=== PATIENT | female | born 2005 | race Caucasian/White ===

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

== ENCOUNTER 2025-01-23 15:17 | Outpatient (AMB) | payer OTHER, SELFPAY ==
[2025-01-23 15:20] VITALS: BP 138/77; PULSE 125; TEMP 36.3; O2SAT 100; BMI 22.9
--- NOTE | 2025-01-23 15:20 | MHC.PC.OV ---
Vital Signs 01/23/25 15:20 01/23/25 17:13 Height 5 ft 8.11 in Weight 151 lb 2 oz BMI 22.9 BP 138/77 Blood Pressure Location Lt brachial Position Sitting Pulse 125 H 97 Pulse Source Pulse Oximeter Monitor Temp 97.3 F Temp Source Temporal Artery Scan Pulse Oximetry (%) 100 Oxygen Delivery Method Room Air Intake Visit Reasons: New Patient Intake Note: Has been getting intermittent dizziness, lightheaded and has shaking episodes. Saw ENT Sunday is being referred to Neurology. Hx social anxiety, selective mutism, anxiety. Accompanied by: Parent Allergies No Known Allergies Allergy (Verified 01/23/25 15:49) Medication List - Last Reconciled 01/23/25 by Muriel Alan PA-C No Known Home Meds Tobacco use date assessed: 01/23/25 Dental Screening Dental Screen Date: 01/23/25 Did you have a dental visit in the last 12 months?: Yes Was dental information given to patient?: Patient has dentist HPI New Patient HPI Details The patient is a 19-year-old female presenting to [facility] care. The patient has a history of social anxiety disorder and selective mutism, which contribute to her elevated heart rate during stressful situations, such as meeting new people. She experiences dizziness, lightheadedness, and shaking episodes, which have prompted previous evaluations including blood sugar and urine tests, as well as blood work for anemia. Recent lab results indicated dehydration, despite the patient primarily consuming water and avoiding sugary drinks. A previous examination revealed fluid in her ears, and blood work showed low carbon dioxide levels. The patient has no significant family history of thyroid disease, and her thyroid examination was normal. Social history - Family status: Lives with family, supportive environment noted during visit - Nutritional intake: Primarily drinks water, avoids sugary drinks and soda [facility] Medical History (Updated 01/23/25 @ 17:16 by Muriel Alan PA-C) Preventative health care Selective mutism Dizziness Social anxiety disorder Family History Mother HTN (hypertension) Hypercholesteremia Father Stroke Hypercholesteremia Social History Housing: House Patient Tobacco Use Status: Never used Tobacco service: No Current occupational status: employed Cognitive needs: No Hearing needs: No Vision needs: No Questionnaire PHQ-9 Over the last 2 weeks, how often have you been bothered by any of the following problems? 1. Little interest or pleasure in doing things: not at all 2. Feeling down, depressed, or hopeless: not at all 3. Trouble falling or staying asleep, or sleeping too much: several days 4. Feeling tired or having little energy: several days 5. Poor appetite or overeating: several days 6. Feeling bad about yourself - or that you are a failure or have let yourself or your family down: not at all 7. Trouble concentrating on things, such as reading the newspaper or watching television: several days 8. Moving or speaking so slowly that other people could have noticed. Or the opposite - being so fidgety or restless that you have been moving around a lot more than usual: not at all 9. Thoughts that you would be better off or of hurting yourself in some way: not at all Total score: 4 Depression Screening Interpretation: Positive Depression Screening Follow-up: Existing condition and Declines treatment (Mother at bedside agrees with plan ) Depression Screening Done: Yes 47789 - PHQ-9 Billing: Yes Source: Developed by Drs. Juvenal Alarcon, Maritza Grimaldo, José Miguel Altman and colleagues, with an educational viktor from [employer]. Thrive Questionnaire Date Thrive assessed: 01/23/25 I am a: Patient What is your living situation today?: I have a steady place to live Within the past 12 months, did you worry whether your food would run out before you got money to buy more?: Never true Do you have trouble paying for medicines?: No Do you have trouble getting transportation to medical appointments?: No Do you have trouble paying your heating and electricity bill?: No Do you have trouble taking care of your child, family member or friend?: No Do you have trouble with day-to-day activities such as bathing, preparing meals, shopping, managing finances, etc.?: No Are you currently unemployed and looking for a job?: No Are you interested in more education?: No Please select the resources that you would like help with: None THRIVE Score: 0 AUDIT C Alcohol Use Questionnaire (AUDIT-C) 1. How often do you have a drink containing alcohol?: Never Total Score: 0 Score Reviewed/Action Taken: Yes ROBERTO-7 AMB Questionnaire ROBERTO-7 Feeling nervous, anxious, or on edge: 1 = Several days Not being able to stop or control worryin = Not at all Worrying too much about different things: 0 = Not at all Trouble relaxin = Not at all Being so restless that it is hard to sit still: 0 = Not at all Becoming easily annoyed or irritable: 1 = Several days Feeling afraid as if something awful might happen: 0 = Not at all Total ROBERTO-7 score (0-4 normal; 5-9 mild; 10-14 moderate; 15-21 severe): 2 Source: Developed by Drs. Juvenal Alarcon, Maritza Grimaldo, José Miguel Altman and colleagues, with an educational viktor from [employer]. ROBERTO-7 Assessment Billing ROBERTO-7 Assessment Tool: ROBERTO-7 Assessment 47230 Review of Systems Const Details: - Cardiovascular: Reports palpitations during stressful situations. Denies chest pain or syncope. - Neurological: Reports dizziness, lightheadedness, and shaking episodes. Denies headaches or seizures. - Respiratory: Denies dyspnea, cough, or wheezing. - Gastrointestinal: Denies abdominal pain, nausea, or vomiting. All systems reviewed & are unremarkable except as noted in HPI and below Physical exam (Primary Care) Vital Signs: Last Vital Signs Temp 97.3 F 01/23/25 15:20 Pulse 125 H 01/23/25 15:20 BP 138/77 01/23/25 15:20 Pulse Ox 100 01/23/25 15:20 Oxygen Delivery Method Room Air 01/23/25 15:20 Care Plan Goal for BP management: <140/90 at Goal BMI result Body Mass Index 22.9 Normal BMI Tobacco/Smoking Status: Tobacco use Status Tobacco use date assessed 01/23/25 01/23/25 15:21 Patient Tobacco Use Status Never used Tobacco 01/23/25 15:21 PHQ-9: PHQ-9 Score PHQ-9: Total score 4 01/23/25 16:01 Depression Screening Interpretation: Positive Depression Screening Follow-up: Existing condition and Declines treatment (Mother at bedside agrees with plan ) Thrive Assessment: Date of Thrive Assessment Date Thrive assessed 01/23/25 01/23/25 15:21 Const Other: Appearance: Alert. Oriented X3. No acute distress. Head: Normal external exam. Normocephalic. Atraumatic. Eyes: Pupils are equal, round, and reactive to light. Extraocular movements intact. Conjunctiva and sclera normal. Eyelids normal. Ears: Fluid noted in ears. Throat: Pharynx normal. Uvula midline. Moist mucous membranes. Neck: Normal inspection. Neck supple. Full range of motion. No adenopathy. Thyroid Normal. No meningeal signs. No neck mass noted. Cardiovascular: Heart rate elevated at 125 bpm. Normal heart rhythm. Heart sound normal. No murmurs noted. Pulses normal throughout. Respiratory: No respiratory distress. Painless inspiration. Breath sounds normal. No wheezes/rales/rhonchi noted. Chest nontender. No accessory muscle usage noted or decreased air movement noted. Abdomen: Soft and nontender. Bowel sounds normal in all 4 quadrants. No distention noted. No organomegaly noted. No visible injury noted. Back: No costovertebral angle tenderness. Full range of motion noted. Skin: Skin warm and dry. Normal skin color. Normal skin turgor. No rashes/lesions/lacerations noted. Extremities: No lower extremity edema. Extremities exhibit normal range of motion. Extremities nontender. Neuro: Oriented X 3. No motor deficit. No sensory deficit. Reflexes normal. Episodes of dizziness, lightheadedness, and shaking noted. Office Procedures Flu Questionnaire Does the patient have a severe egg allergy?: No Does the patient have severe life threatening allergies?: No Does the patient have a fever or illness today?: No Has the patient ever had Guillain-Hudson Syndrome?: No Has the patient ever had any past reaction to a flu shot?: No Immunizations Fluarix [id number] (PF) 45 mcg (15 mcg x 3)/0.5 mL IM syringe Performing Provider: Muriel Alan PA-C [facility] Documented (not given) by: Halle Heredia CMA on 01/23/25 15:30 Reason Not Given: Received Previously Results Reviewed Results Reviewed: - Labs: Blood sugar normal, urine showed dehydration, low carbon dioxide levels noted Coding Level of Care Code New Pt Level 4 (66421) Complex EM visit Add On G2211 Diagnoses Social anxiety disorder F40.10 Dizziness R42 Selective mutism F94.0 Preventative health care Z00.00 Additional Codes ROBERTO-7 Assessment Billing - ROBERTO-7 Assessment Tool: ROBERTO-7 Assessment 68792 ([id number]) PHQ-9 - 72621 - PHQ-9 Billing: Yes ([id number]) Time Spent (min) 60 Assessment & Plan Assessment & Plan (1) Social anxiety disorder: Code(s): F40.10 - Social phobia, unspecified Category: Medical Plan: The patient will be referred to a therapist or psychiatrist to address social anxiety disorder, with the option of phone consultations to accommodate comfort levels. Medication such as Ativan may be considered for acute anxiety episodes if the patient is open to it. (2) Dizziness: Code(s): R42 - Dizziness and giddiness Category: Medical Plan: A neurology referral for an EEG is recommended to rule out seizures as a cause of dizziness and lightheadedness. Additional blood work including magnesium, vitamin B12, folate, and thyroid function tests will be conducted to identify any underlying deficiencies or imbalances. (3) Selective mutism: Code(s): F94.0 - Selective mutism Category: Medical Plan: Condition is chronic and stable will continue to monitor. (4) Preventative health care: Code(s): Z00.00 - Encounter for general adult medical examination without abnormal findings Category: Medical Plan: The patient is advised to undergo routine blood work, including inflammatory markers, hemoglobin A1c, and cholesterol, to establish a baseline and monitor for any abnormalities. A follow-up appointment is scheduled in two to three months to review neurology findings and reassess the patient's condition. Plan Plan Patient was informed and verbally consented to the use of an ambient scribe for clinic note documentation during this visit. 1. Social Anxiety Disorder The patient will be referred to a therapist or psychiatrist to address social anxiety disorder, with the option of phone consultations to accommodate comfort levels. Medication such as Ativan may be considered for acute anxiety episodes if the patient is open to it. 2. Dizziness And Lightheadedness A neurology referral for an EEG is recommended to rule out seizures as a cause of dizziness and lightheadedness. Additional blood work including magnesium, vitamin B12, folate, and thyroid function tests will be conducted to identify any underlying deficiencies or imbalances. 3. Preventative Care The patient is advised to undergo routine blood work, including inflammatory markers, hemoglobin A1c, and cholesterol, to establish a baseline and monitor for any abnormalities. A follow-up appointment is scheduled in two to three months to review neurology findings and reassess the patient's condition. During the visit, I discussed the importance of addressing social anxiety disorder with a therapist or psychiatrist, emphasizing the availability of phone consultations to ease the process. We considered the use of Ativan for acute anxiety episodes, should the patient choose to pursue medication. I recommended a neurology referral for an EEG to investigate the cause of dizziness and lightheadedness, and we planned additional blood work to check for deficiencies. A follow-up in two to three months was scheduled to review findings and adjust the care plan as needed. Orders: Orders Magnesium Today Z00.00 - Encounter for general adult medical examination without abnormal findings UA CC w/rflx Micro + Cult Today Z00.00 - Encounter for general adult medical examination without abnormal findings DHEA Sulfate Today Z00.00 - Encounter for general adult medical examination without abnormal findings Testosterone, Free/Total Today Z00.00 - Encounter for general adult medical examination without abnormal findings Progesterone Today Z00.00 - Encounter for general adult medical examination without abnormal findings Lutenizing Hormone Today Z00.00 - Encounter for general adult medical examination without abnormal findings Influenza [id number] Immunization Today Z23 - Encounter for immunization C Reactive Protein Today Z00.00 - Encounter for general adult medical examination without abnormal findings Erythrocyte Sedimentation Rate Today Z00.00 - Encounter for general adult medical examination without abnormal findings Lipid Panel Today Z00.00 - Encounter for general adult medical examination without abnormal findings Hemoglobin A1c Today Z00.00 - Encounter for general adult medical examination without abnormal findings TSH reflex Free T4 Today Z00.00 - Encounter for general adult medical examination without abnormal findings Vitamin B12 and Folate Today Z00.00 - Encounter for general adult medical examination without abnormal findings Vitamin D 25-OH Total Today Z00.00 - Encounter for general adult medical examination without abnormal findings Dihydrotestosterone Today Z00.00 - Encounter for general adult medical examination without abnormal findings Prolactin Today Z00.00 - Encounter for general adult medical examination without abnormal findings Patient Instructions: - Schedule an appointment with a therapist or psychiatrist for social anxiety disorder. - Consider medication for anxiety episodes if needed. - Complete the recommended blood work, including tests for magnesium, vitamin B12, folate, and thyroid function. - Follow up with neurology for an EEG to assess dizziness and lightheadedness. - Return for a follow-up appointment in two to three months to review test results and adjust the care plan.
--- OUTSIDE RECORDS SUMMARY | 2025-01-23 16:50 | XMS_ITS | Patient Health Record ---
Author Organization [facility] Address [address] [facility] [address] Care Team Providers Care Teacher Of The Visually Impaired Name Role Phone Tameka Kaplan MD Primary Care Provider Nirmal Ignacio Unavailable [phone] Reason For Referral No Information Medications Medication SIG (Take, Route, Frequency, Duration) Notes Start Date End Date Status Ivgbcxte-Trvpwealh-ZG 3.5-53818-9 3-4 DROPS IN AFFECTED EAR 4 TIMES A DAY FOR 7 DAYS Otic; Duration: 7 Not-Takin g Social History Tobacco Use: Social History Observation Description Date Details (start date - stop date) Never Smoker NA - NA Tobacco Use/Smoking Question Answer Notes Are you a: nonsmoker Additional Findings: Tobacco Non-User Current no n-smoker Alcohol Screen Question Answer Notes Did you have a drink containing alcohol in the p ast year? No Points 0 Interpretation Negative Tobacco use other than smoking: Question Answer Notes Are you an other tobacco user? No Problems Problem Type SNOMED Code ICD Code Onset Dates Problem Status W/U Status Risk Notes Problem Tibialis tendinitis (25897000) Posterior tibial tendinitis, right leg (M76.821) Active confirmed Problem Tibialis tendinitis (56411612) Posterior tibial tendinitis, left leg (M76.822) Active confirmed Plan Of Treatment No Information Insurance Providers Payer Name Payer Address Payer Phone Subscriber Number Group Number Insured Name Patient Relationship to Insured Coverage Start Date Coverage End Date [facility] [address] [place] [address] [id number] Valeriy Dean Child - Insured has Financial Responsibility Medical (General) History Medical History History ICD Code Anxiety disorder Surgical History Surgery Date(Month/Year) tubes 2006, 2009 tube removal 2011
--- OUTSIDE RECORDS SUMMARY | 2025-01-23 16:50 | XMS_ITS | Clinical Summary ---
Author Organization [facility] Address [address] [place] [address] Phone Care Team Providers Care Marketing Services Coordinator Name Role Phone Halle Goff MD Primary Care Provider [phone] Allergies Active Allergy Reactions Criticality Noted Date Comments Environmental Medications Cetirizine HCl (ZYRTEC ALLERGY PO) Take by mouth. Active fluticasone 50 MCG/ACT nasal sprayIndications :Vertigo 12/19/2024 Active Active Problems Problem Noted Date Diagnosed [...] EDT): anxiety so so working w/ the [facility] [facility] Adjustment counselor, attendance counselor as pt transitioned from [facility] during the pandemic Assessment & Plan [...] EST): Ashwini started school in person at [employer] after being at [employer] in the past few years Was [...] was in therapy with jeffrey in the [place] office and recently with Claribel Also had a consult with [facility] yesterday. 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 Occasionally struggles with her brother - mom worries about this. Not interested in therapy at this time Assessment & Plan (08/05/2018 2:49 PM EDT): In therapy with Claribel. Doing okay in therapy. No acute concerns today. Assessment & Plan (07/30/2017 3:39 PM EDT): Consider therapy. Resolved Problems Problem Noted Date Diagnosed Date Resolved Date Tibialis tendinitis 12/22/2024 12/23/19 25 Posterior tibial tendinitis, right leg 12/22/2024 12/22/2024 Dizziness 12/05/2021 12/11/2022 Overview (12/05/2021): Pt seen [...] 2 pills last night. 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 Stressed import of taking med regularly. Assessment & Plan (06/23/2020 4:10 PM EDT): Doing well on the OCP with improvement of cramps. Assessment & Plan (03/19/2020 6:06 PM EST): Ordered OCP to start as discussed a month ago Sahwini never did start Fluoxetine. to follow up [...] for awhile and is having no SE. Encounters Date Type Department Care Team Description 12/22/2024 4:00 PM EDT Office Visit [facility] - [address] [address] Halle Goff MD Vertigo (Primary Dx); Dizziness from Last 3 Months Immunizations Immunization Administration Dates Next Due DTaP [...] Father Valeriy Roman Dental caries Father Valeriy [place] SAILAJA disease Father Valeriy [place] Hyperlipidemia Father Valeriy [place] Hypertension Father Valeriy [place] Stroke Father Valeriy [place] Arthritis Maternal Grandfather Dental caries Maternal Grandfather Diabetes Maternal Grandfather Hyperlipidemia Maternal Grandfather Hypertension Maternal Grandfather Dental caries Mother Monimaryellen [place] SAILAJA disease Mother Monimaryellen [place] Hypertension Mother Moni [place] Obesity Mother Moni [place] Aneurysm Paternal Grandfather Cancer Paternal Grandfather Cancer (Childhood Onset) Paternal Grandfather Dental caries Paternal Grandfather Emphysema Paternal Grandfather Heart disease (Premature) Paternal Grandfather Kidney disease Paternal Grandfather Prostate cancer Paternal Grandfather Hyperlipidemia Paternal Grandmother Relation Name Status Comments Brother David Roman Alive Brother: Alive and well Father Valeriy Roman Alive COPD Maternal Grandfather Mother Moni Kingevsuni Alive Mother: Alive and well Other Family history of Coronary artery disease, No family history of *CVA/Stroke, Family history of *Heart Disease, Family history of *Dental caries, Family history of Eczema, Family history of Hyperlipidemia, No family history of *Sudden /AL under 55, No family history of *Thrombophilia [...] Sign Reading Time Taken Comments Blood Pressure 120/70 12/22/2024 4:03 PM EDT man ual Pulse 98 12/22/2024 4:03 PM EDT Temperature 36.4 C (97.5 F) 12/22/2024 3:53 PM EDT Respiratory Rate - - Oxygen Saturation 100% 01/07/2024 8:51 AM EDT Inhaled Oxygen Concentration - - Weight 64.2 kg (141 lb 8 oz) 12/22/2024 3:53 PM EDT Height 170.2 cm (5' 7 ) 09/03/2024 10:06 AM EDT Body Mass Index 22.16 09/03/2024 10:06 AM EDT Plan of Treatment Health Maintenance Due Date Last Done Comments Influenza Vaccines (#1) 2024 02/13/20, 04/15/2018, 12/28/2006, Additional history exists COVID-19 Vaccine (3 - 2024-2 6 season) 2024 09/23/2020, 09/02/2020 DTaP,Tdap,and Td [...] Additional history exists Procedures * Due to [facility] law, this organization might not be sharing sensitive test results. Procedure Name Priority Date/Time Associated Diagnosis Comments POCT URINALYSIS DIPSTICK Routine 12/22/2024 4:14 PM EDT Dizziness CHLAMYDIA AND GONORRHEA, AMPLIFIED Routine 09/03/2024 10:36 AM EDT Special screening examination for chlamydial disease from Last 3 Months or Most Recently Relevant to Health Maintenance Results * Due to [facility] law, this organization might not be sharing sensitive test results. * (ABNORMAL) POCT Urinalysis Dipstick (12/22/2024 4:14 PM EDT) Pathologist [facility] Leukocytes, U[facility] Nitrite, Urine [facility] Urobilinogen, Urine 0.2 0.1 - 1 mg/dL [facility] Protein, Urine +-(A) Negative [facility] Comment:15 mg/dL pH, Urine 5.5 4.6 - 10 [facility] BLOOD neg Negative n [facility] Specific [place], Urine 1.030 1.0003 - 1.03 [facility] Ketones, Urine +-(A) Negative [facility] DENISE Comment:5 mg/dL Bilirubin, Urine, POC neg Negative n [facility] Glucose neg Negative [facility] Urine 12/22/2024 4:14 PM EDT 12/22/2024 4:14 PM EDT Narrative [facility] - 12/22/2024 4:14 PM EDT [id number] ([id number]), [place] office Early Childhood Associate Teacher: 01 Testing Performed at us Halle Goff MD POINT OF CARE TEST ORDERABLES Final Result [facility] [address] [place] [address] * Chlamydia and Gonorrhoea, Amplified (09/03/2024 10:36 AM EDT) C trach CAORL ANN Negative Negative [facility] N gonorrhoeae CAROL ANN Negative Negative [facility] Urine (Urine) 09/03/2024 10: 36 AM EDT 09/03/2024 Comment:URINE Narrative [facility] - 09/04/2024 4:05 PM EDT Performed at: 01 - [facility] [address], [address], [place], [place] [id number] Director Market Research: Jabari Nino MD, Phone: [phone] us Tammy Gonzalez NP LAB MICROBIOLOGY - GENERAL NATASHA SPANGLER Final Result Performing Organization Address City/[facility]/ZIP Co de Phone Number [facility] [address] [place] [address] from Last 3 Months or Most Recently Relevant to Health Maintenance Insurance [facility] COMM[facility]CIAL [facility] [employer]CIAL Care Teams Marketing Services Coordinator Relationship Specialty Start Date End Date Halle Goff MD [address] [place] [id number] PCP - General Pediatrics 09/26/22
--- OUTSIDE RECORDS SUMMARY | 2025-01-23 16:50 | XMS_ITS | Encounter Summary ---
Author Organization [facility] Address [address] [place] [address] Phone Care Team Providers Care Camera Mechanic Name Role Phone Halle Goff MD Primary Care Provider [phone] Encounter Details Date Type Department Care Team (Late st Contact Info) Description 02/14/2011 Documentation [facility] Family Medicine [address] [place] [address] Family Medicine, Physician [address] [place] [address] Social History Tobacco Use Types Packs/Day Years [...] on filedocumented in this encounter Care Teams Camera Mechanic Relationship Specialty Start Date End Date Halle Goff MD [address] [place] [id number] PCP - General Pediatrics 09/26/22 documented as of this encounter
--- OUTSIDE RECORDS SUMMARY | 2025-01-23 16:50 | XMS_ITS | Encounter Summary ---
Author Organization [facility] Address [address] [place] [address] Phone Care Team Providers Care Bakery Worker Name Role Phone Halle Goff MD Primary Care Provider [phone] Encounter Details Date Type Department Care Team (Late st Contact Info) Description 01/18/2011 Documentation [facility] Family Medicine [address] [place] [address] Family Medicine, Physician [address] [place] [address] Social History Tobacco Use Types Packs/Day Years [...] on filedocumented in this encounter Care Teams Bakery Worker Relationship Specialty Start Date End Date Halle Goff MD [address] [place] [address] PCP - General Pediatrics 09/26/22 documented as of this encounter
--- OUTSIDE RECORDS SUMMARY | 2025-01-23 16:50 | XMS_ITS | Continuity of Care Document ---
Author Organization [place] [facility], [facility] [place] Address [address] [place] [address] Care Team Providers Care Yard Assistant Name Role Phone JACLYN SKINNER Primary Care Provider Assessment Encounter Date Assessment Date Assessment LastModified by Organization Details LastModified Time 01/21/2025 01/21/2025 - light headedness, likely related to combination of anxiety, orthostatic hypotension and possible migraine component The patentis symptoms of light headedness and dizziness are consistent with low blood pressure, particularly when transitioning from sitting to standing. This was demonstrated on Conroe-Hallpike both times today. Vestibular migraines may also be contributing to her symptoms, especially those associated with changes in barometric pressure or altitude. Anxiety may exacerbate her symptoms and complicate the clinical picture. Hormonal factors may also play a role, given her erratic menstrual cycles per mom I recommend keeping a diary of symptoms to identify potential triggers and patterns. A low-salt diet, adequate hydration, and avoidance of caffeine and stimulants are advised to help manage symptoms. Information packets on atypical migraines and the supplement Migranol will be provided for further education and consideration. Referral to a neurologist is recommended for further evaluation, including possible imaging studies such as MRI, and to rule out other causes of dizziness. Referral to a technology auditor may also be beneficial to assess blood pressure-related issues. The patient is encouraged to follow up with her new primary care physician for ongoing management and coordination of care. Procedure Documentation: - Conroe-Hallpike test performed bilaterally. [email or web address] Not available 01/21/2025 16:47:37 Plan of Treatment Reminders Order Date Submit Date Provider Last Modified By Organization Details Last Modified Time Details Appointments None recorded. Lab None recorded. Referral neurologis t referral - Recurring dizziness, not otologic, potential atypical migraine versus orthostati c hypotensio n 2024 025 CHANDANA Puckett MD, [address] [facility], [place], [address], 12:38:59 Procedures None recorded. Surgeries None recorded. Imaging None recorded. Medication Orders None recorded. Patient TargetsNo targets recorded. Patient Instructions Encounter Date Encounter Id Patient Instructions Last Modified By Organization Details Last Modified Time 01/21/2025 [id number] - Keep a diary of symptoms to identify potential triggers. - Follow a low-salt diet and maintain adequate hydration. - Avoid caffeine and stimulants. - Review information packets on atypical migraines and Migranol. - Follow up with a neurologist for further evaluation. - Follow up with a technology auditor to assess blood pressure-related issues. - Coordinate care with the new primary care physician. [email or web address] Not available 01/21/2025 16:23:31 Please note: Parts of this encounter note have been generated by AI based on audio conversation. Patient consent was required prior to utilizing this technology. Content review was required prior to finalizing the note. [email or web address] Not available 01/21/2025 16:23:32 Reason for Referral Neurologist Referral for Diz ziness and giddiness Recurring dizziness, not otologic, potential atypical migraine versus orthostatic hypotension Referring Physician: Jaime Moyer, Otolaryngology, Encounter Date: 01/21/2025 Results Created Date Observation Date Name Description Value Unit Range Abnormal Flag Note LastModifiedBy Organization Detail LastModifiedTime 01/16/20 25 audio gram No observ ation record ed. BARCODE Not Available 2024 15:57:21 01/16/20 25 audio gram No observ ation record ed. [email or web address] Not Available 15:57:46 01/16/20 25 audio gram No observ ation record ed. BARCODE Not Available 2024 16:38:50 Result Notes None recorded. Problems Name Problem SNOMED Code Status Onset Date Resolution Date Notes Provider Name and Address Organization Details Recorded Time Louisa 42510246 Active 2014 Otalgi a; Note: Date Diagno sed: 015 10:01 AM (388.7 0) Not Available [facility] 02:57:30 Dizziness 743292582 Active 2024 EVELYNE MCCLAIN MA, CCC-A [address], [place], [address] , [facility] [place] 15:47:04 Dizziness and giddiness 852969060 Active 2024 Jaime Moyer, DO [address] [facility] [address], [place], [address] , [facility] - [facility] [place] 16:46:34 Orthostatic hypotension 90517754 Active 2024 Jaime Moyer, DO [address] [facility] [address] [place],[address], [place], [address] , [facility] - [facility] [place] 16:46:38 Generalized anxiety disorder 42516624 Active 2024 Jaime Moyer, DO [address] [facility] [address] [place],[address], [place], [address] , [facility] - [facility] [place] 16:46:41 Problem Notes None recorded. Procedures Surgical History Date Name Laterality Status Provider Name and Address Organization Details Recorded Time 01/15/2025 Air & Speech Audio with Tymps - 50309, 05972 & 31488 completed EVELYNE MCCLAIN MA, [facility] [address] [facility] [address] [place],[address], [place], [place], [address], [facility] - [facility] 01/15/2025 15:47:16 Imaging Results None recorded. Procedure Notes None recorded. Medical Equipment None Reported. Allergies No known drug allergies Medications Name Sig Start Date Stop Date Status Note LastModified by Organization Details LastModified Time meclizine 12.5 mg tablet TAKE 1 TABLET BY MOUTH TWICE A DAY FOR 7 DAYS 01/21 completed Not Available Not Available Not Available amoxicillin 400 mg/5 mL oral suspension TAKE 11 ML (875 MG TOTAL) BY MOUTH 2 (TWO) TIMES A DAY FOR 7 DAYS. 12/23 completed Not Available Not Available Not Available fluticasone propionate 50 mcg/actuati on nasal spray,suspe nsion 1 SPRAY INTRANASA LLY DAILY ADMINISTE R INTO EACH NOSTRIL ONCE DAILY active Not Available Not Available No t Available Vitals Date Recorded Body height Body mass index (BMI) [Percentile] Per age and sex Body mass index (BMI) Body weight Provider Name and Address Organization Details Last Updated DateTime 01/21/2025 170.18 cm 53 % 21.9 kg/m2 08453.93 g CAROLANN HINES [facility] 01/21/2025 15:58:33 Social History None recorded. Functional Status None recorded. Mental Status None recorded. Family History Nothing Reported. Medical History No medical history recorded. Gynecological HistoryNo gynecological history recorded. Obstetrics History GPAL:G 0 P 0 0 0 0 Past Encounters Encounter ID Performer Location Encounter Start Date Encounter Closed Date Diagnosis/Indication Diagnosis SNOMED-CT Code Diagnosis ICD10 Code Diagnosis IMO Codes Diagnosis Note [id number] Jaime Moyer DO [facility] of [address] [address] 01/15/2025 15:05:05 01/15/2025 15:56:20 Dizziness 442391623 R42 39363 Audiologic al evaluation results: Right ear: Normal hearing with excellent word recognitio n. Left ear: Normal hearing with excellent word recognitio n. Tympanomet ry: Right Ear:Type As (0.2) Left Ear:Type As (0.2) [id number] Jaime Moyer DO [facility] of [address] [address] 01/21/2025 15:19:20 01/21/2025 16:33:04 Dizziness and giddiness [id number] R42 14814 Audiologic al evaluation results: Right ear: Normal hearing with excellent word recognitio n. Left ear: Normal hearing with excellent word recognitio n. Tympanomet ry: Right Ear:Type As (0.2) Left Ear:Type As (0.2) Orthostati c hypotension 15701577 I95.1 3436 Audiologic al evaluation results: Right ear: Normal hearing with excellent word recognitio n. Left ear: Normal hearing with excellent word recognitio n. Tympanomet ry: Right Ear:Type As (0.2) Left Ear:Type As (0.2) Generalize d anxiety disorder 92139473 F41.1 [id number] Health Concerns Section Related Observation LastModified by Organization Detai ls LastModified Time None Recorded Concern Status LastModified by Organization Details LastModified Time None Recorded Payers Encounter Date Sequence Insurance Name Policy Number Policy Mondragon Covered Member ID Mondragon Member ID Guarantor Name 01/21/2025 1 [facility] [id number] Ashwini Roman [id number] Erlinda Roman Notes Date Note Type Note Provider Name and Address Organization Details Recorded Time 01/21/2025 text/html Ashwini Roman is a 19-year-old female who presents with complaints of lightheadedness, dizziness, and shakiness. She has a history of ear problems, including placement of ear tubes during childhood, and reports occasional ear pain. Over the past year to year and a half, she has experienced episodes of lightheadedness, particularly when transitioning from sitting to standing, turning her head, or during activities such as showering and tilting her head forward. She has also reported room-spinning sensations upon waking, which have occurred a few times. Changes in elevation or altitude, such as during travel, have been associated with lightheadedness and shakiness. Blood tests have ruled out anemia and blood sugar abnormalities. Her symptoms are sometimes accompanied by shakiness, which has been noted upon waking or during periods of stress, such as following the passing of her grandfather last year. Her menstrual cycles are described as erratic, and she has not yet seen a neurologist or technology auditor for further evaluation. Jaime Moyer, DO [address] [facility],[place] [address], [place], [address], [facility] 01/21/2025 16:47:50 OBGyn Episode No OBEpisode recorded.
--- OUTSIDE RECORDS SUMMARY | 2025-01-23 16:50 | XMS_ITS | Encounter Summary ---
Author Organization [facility] Address [address] [place] [address] Phone Care Team Providers Care Photogrammetric Compilation Specialist Name Role Phone Halle Goff MD Primary Care Provider [phone] Reason for Visit * Reason Comments Med Refill Encounter Details Date Type Department Care Team ([facility] st Contact Info) Description 03/19/2020 Refill [facility] [address] [address] Tameka Kaplan MD [address] [place] [address] Anxiety Social History Tobacco Use Types Packs/Day [...] unspecified documented in this encounter Care Teams Photogrammetric Compilation Specialist Relationship Specialty Start Date End Date Halle Goff MD [address] [place] [address] PCP - General Pediatrics 09/26/22 documented as of this encounter
--- OUTSIDE RECORDS SUMMARY | 2025-01-23 16:50 | XMS_ITS | Encounter Summary ---
Author Organization [facility] Address [address] [place] [address] Phone Care Team Providers Care Bakery Supervisor Name Role Phone Halle Goff MD Primary Care Provider [phone] Encounter Details Date Type Department Care Team (Late st Contact Info) Description 11/16/2016 Conversion Encounter [facility] [address] [place] [address] Social History Tobacco Use Types Packs/Day Years [...] filedocumented in this encounter Care Teams Bakery Supervisor Relationship Specialty Start Date End Date Halle Goff MD [address] [place] [address] PCP - General Pediatrics 09/26/22 documented as of this encounter
--- OUTSIDE RECORDS SUMMARY | 2025-01-23 16:50 | XMS_ITS | Data Portability ---
Author Organization [place] - [facility], Allergy Address [address] [place] [address] Care Team Providers Care Electric Deicer Assembler Name Role Phone JACLYN SKINNER Primary Care Provider Assessment Encounter Date Assessment Date Assessment LastModified by Organization Details LastModified Time 01/21/2025 01/21/2025 - light headedness, likely related to combination of anxiety, orthostatic hypotension and possible migraine component The patentis symptoms of light headedness and dizziness are consistent with low blood pressure, particularly when transitioning from sitting to standing. This was demonstrated on Jesus Alberto-Hallpike both times today. Vestibular migraines may also [...] other causes of dizziness. Referral to a acid remover may also be beneficial to assess blood pressure-related issues. The patient is encouraged to follow up with her new primary care physician for ongoing management and coordination of care. Procedure Documentation: - Jesus Alberto-Hallpike test performed bilaterally. [email or web address] Not available 01/21/2025 16:47:37 Plan of Treatment Reminders Order Date Submit Date Provider Last Modified By Organization Details Last Modified Time Details Appointments None recorded. Lab None recorded. Referral neurologis t referral - Recurring dizziness, not otologic, potential atypical migraine versus orthostati c hypotensio n 2024 025 CHANDANA Puckett MD, [address] [facility], [place], [address], 12:38:59 Procedures None recorded. Surgeries None recorded. Imaging None recorded. Medication Orders None recorded. Patient TargetsNo targets recorded. Patient Instructions Encounter Date Encounter Id Patient Instructions Last Modified By Organization Details Last Modified Time 01/21/2025 [id number] - Keep a diary of symptoms to identify potential triggers. - Follow a low-salt diet and maintain adequate hydration. - Avoid caffeine and stimulants. - Review information packets on atypical migraines and Migranol. - Follow up with a neurologist for further evaluation. - Follow up with a acid remover to assess blood pressure-related issues. - Coordinate [...] audio gram No observ ation record ed. [email or web address] Not Available 15:57:46 01/16/20 25 audio gram No observ ation record ed. BARCODE Not Available 2024 16:38:50 Result Notes None recorded. Problems Name Problem SNOMED Code Status Onset Date Resolution Date Notes Provider Name and Address Organization Details Recorded Time Otalgia 20221901 Active 2014 Otalgi a; Note: Date Diagno sed: 015 10:01 AM (388.7 0) Not Available [facility] 02:57:30 Dizziness 057705018 Active 2024 EVELYNE MCCLAIN MA, [facility] [address], [facility] [place], [address] , [facility] - [facility] [place] 15:47:04 Dizziness and giddiness 203505660 Active 2024 Jaime Moyer, [address],[address], [facility] [place], [address] , [facility] - [facility] [place] 16:46:34 Orthostatic hypotension 61116498 Active 2024 Jaime Moyer, [address] [place] [address], [facility] [place], [address] , [facility] - [facility] [place] 16:46:38 Generalized anxiety disorder 36020905 Active 2024 Jaime Moyer, [address] [facility] [address], [place], [address] , [facility] - [facility] [place] 16:46:41 Problem Notes None recorded. Procedures Surgical History Date Name Laterality Status Provider Name and Address Organization Details Recorded Time 01/15/2025 Air & Speech Audio with Tymps - 19783, [address] & [address]121 completed EVELYNE MCCLAIN MA, [facility] [address] [facility],[address] [facility], [place], [address], [facility] - [facility] [place] 01/15/2025 15:47:16 Imaging Results None recorded. Procedure [...] 01/21/2025 170.18 cm 53 % 21.9 kg/m2 57483.93 g CAROLANN HINES [place] - [facility] 01/21/2025 15:58:33 Social History None recorded. Functional Status None recorded. Mental Status None recorded. Family History Nothing Reported. Medical History No medical history recorded. Gynecological HistoryNo gynecological history recorded. Obstetrics History GPAL:G 0 P 0 0 0 0 Past Encounters Encounter ID Performer Location Encounter Start Date Encounter Closed Date Diagnosis/Indication Diagnosis SNOMED-CT Code Diagnosis ICD10 Code Diagnosis IMO Codes Diagnosis Note [id number] Jaime Moyer DO [facility] of [address] [address] 01/15/2025 15:05:05 01/15/2025 15:56:20 Dizziness [id number] R42 64998 Audiologic al evaluation results: Right ear: Normal hearing with excellent word recognitio n. Left ear: Normal hearing with excellent word recognitio n. Tympanomet ry: Right Ear:Type As (0.2) Left Ear:Type As (0.2) [id number] Jaime Moyer DO [facility] of [address] [address] 01/21/2025 15:19:20 01/21/2025 16:33:04 Dizziness and giddiness [id number] R42 84585 Audiologic al evaluation results: Right ear: Normal hearing with excellent word recognitio n. Left ear: Normal hearing with excellent word recognitio n. Tympanomet ry: Right Ear:Type As (0.2) Left Ear:Type As (0.2) Orthostati c hypotension 75515826 I95.1 3436 Audiologic al evaluation results: Right ear: Normal hearing with excellent word recognitio n. Left ear: Normal hearing with excellent word recognitio n. Tympanomet ry: Right Ear:Type As (0.2) Left Ear:Type As (0.2) Generalize d anxiety disorder 51514785 F41.1 821664 Health Concerns Section Related Observation LastModified by Organization Detai ls LastModified Time None Recorded Concern Status LastModified by Organization Details LastModified Time None Recorded Advance Directives Directive None Recorded Payers Insurance Date Sequence Insurance Name Policy Number Policy Mondragon Covered Member ID Mondragon Member ID Guarantor Name 01/21/2025 1 [facility] [id number] Ashwini Roman [id number] Erlinda Roman Notes Date Note Type Note [...] has not yet seen a neurologist or acid remover for further evaluation. Jaime Moyer, [address], [address], [facility] - [facility] 01/21/2025 16:47:50 OBGyn Episode No OBEpisode recorded.
--- OUTSIDE RECORDS SUMMARY | 2025-01-23 16:51 | XMS_ITS | Data Portability ---
Author Organization [place] - [facility], ABHISHEK Magdi PT Address [address] [place] [address] Assessment No assessment recorded. Plan of Treatment Reminders Order Date Submit Date Provider Last Modified By Organization Details Last Modified Time Details Appointments None recorde d. Lab None recorde d. Referral None recorde d. Procedures None recorde d. Surgeries None recorde d. Imaging XR, wrist, 3 or more view - RM 2 4V WRIST WITH CERTIFIED PROFESSIONAL ERGONOMIST 025 09/16/19 25 [place], [address], [address], [place], [address], 14:48:44 Medication Orders None recorde d. Patient TargetsNo targets recorded. Patient Instructions Encounter Date Encounter Id Patient Instructions Last Modified By Organization Details Last Modified Time 09/15/2024 [id number] application of cast, short arm cast* - rm 2 sac high on forearm [email or web address] Not available 09/17/2024 08:49:45 09/17/2024 [id number] [facility] Custom Hand Orthosis Information Sheet [address] [place] [address] Name: Ashwini Roman Right Diagnosis: Ulnar-sided wrist pain Orthosis Code: Hand Wrist L 3906 WHO Orthosis Style: Custom thermoplastic volar forearm-based wrist immobilization orthosis The PURPOSE for this custom orthosis is to: Maintain the wrist in alignment and reduce motion at the wrist joint to reduce pain and friction ; the removable for hygiene and very gentle range of motion PRECAUTIONS to consider include: HEAT SOURCES: including, but not limited to, the rn ambulatory, dryer, stove, furnace, heater, car (on a hot summer day). PETS: they like to chew the plastic. SKIN: watch for redness, blisters or any skin irritations. CLEANING: use warm soapy water, wipes or biological scientist to keep the plastic clean, cotton socks and straps can be hand washed. The PLAN is to wear this brace: Full-time. Remove only for hygiene and gentle motion For modifications to this custom piece please contact your hand therapy provider. If you have not been assigned to hand therapy please call this office to be seen for an adjustment. This orthosis is medically necessary for proper and appropriate treatment of the above noted diagnosis. This orthosis has been custom fabricated by: Vickie ROSA/Dawn, CHT I understand the purpose, precautions and plan for this custom orthosis Patient Signature: [email or web address] Not available 09/17/2024 14:26:24 Reason for Referral None Reported. Results Created Date Observation Date Name Description Value Unit Range Abnormal Flag Note LastModifiedBy Organization Detail LastModifiedTime 09/16/19 25 09/15/2024 XR, wrist , 3 or more view http:/ [email or web address] ?Encry pted=s hAaTro YD8dLq bEUv6g %2BXZw aYqtaq 0bqfl% 2Fg9IQ a4ajBk vP9nXo QUaueC m3YtLR FvZlgJ JJ8mAn HZtai3 8d6941 AC0Kla HmMUqK mKiQtr MwF INTERFACE Take the [facility] [address] [facility], [place], [address], 09/15/2024 14:48:44 09/16/19 25 09/15/2024 XR, wrist , 3 or more view http:/ [email or web address] ?Encry pted=s hAaTro YD8dLq bEUv6g %2BXZw aYqtaq 0bqfl% 2Fg9IQ a4ajBk vP9nXo QUaueC m3YtLR FvZlgJ JJ8mAn HZtai3 0h5650 AC0Kla HmMUqK mKiQtr MwF INTERFACE Take the [facility] Office [address], [place], [address], 09/15/2024 14:48:46 Result Notes Documentation Provider Name and Address Organization Details Recorded Time Xr, Wrist, 3 Or More View : [email or web address]? Encrypted=pnCdBnyPB7sRjdS Uv6g%6PLQvyLlgvf4fapn%2Fg 5KVp8mhXtvD8cVnXNgfcPe5Mr DZNoZjdJPR9nSnXFeen42w994 6IV0OszKfFSqXrJrYdxSxW Not Available [facility] 09/15/2024 14:48: 45 Xr, Wrist, 3 Or More View : [email or web address]? Encrypted=ftNzQbgCI4vPmwK Uv6g%5JIDvdXsoqd9pcpw%2Fg 1MLd1udFztF4sCaHFwqmIa8Yn AVHtWjcCLX2fUbQAxyy84y432 1RV9JuxOvSSfMxQgRkoKwX Not Available [facility] 09/15/2024 14:48: 46 Procedures Surgical History Date Name Laterality Status Provider Name and Address Organization Details Recorded Time 5 Splint_Short Arm Fiberglass_1 1+ completed Dinorah [facility] 09/17/2024 14:59:54 5 Cast Removal completed Dinorahroland [facility] 09/17/2024 14:55:22 Imaging Results None recorded. Procedure Notes None recorded. Medical Equipment None Reported. Medications Name Sig Start Date Stop Date Status Note LastModified by Organization Details LastModified Time amoxicillin 400 mg/5 mL oral suspension TAKE 11 ML (875 MG TOTAL) BY MOUTH 2 (TWO) TIMES A DAY FOR 7 DAYS. active Not Available Not Available No t Available Vitals None Recorded Social History None recorded. Functional Status None recorded. Mental Status None recorded. Family History Nothing Reported. Medical History No medical history recorded. Gynecological HistoryNo gynecological history recorded. Obstetrics History GPAL:G 0 P 0 0 0 0 Past Encounters Encounter ID Performer Location Encounter Start Date Encounter Closed Date Diagnosis/Indication Diagnosis SNOMED-CT Code Diagnosis ICD10 Code Diagnosis IMO Codes Diagnosis Note [id number] Libby GAIL Ramos [facility] - [place] [address] [place] [address] 09/15/2024 14:31:29 09/30/2024 15:05:41 Pain of right wrist [id number] 59242 M25.531 [id number] Libby Ramos PA-C [facility] [place] [address] [place] [address] 09/17/2024 13:58:35 09/17/2024 15:00:51 Pain of right wrist [id number] 09949 M25.531 [id number] Vickie Malagon, OTR/L,CHT [facility] - [place] [address] [place] [address] 09/17/2024 14:22:33 09/17/2024 15:22:59 Pain of right wrist [id number] 36017 M25.531 [id number] Today to protect the injury site and restrict joint motion and tendon glide, a forearm based wrist immobiliza tion orthosis was fabricated . The purpose, precaution s and plan with this orthosis are reviewed with the patient who agrees to wear this full-time for removing it for hygiene and exercise The patient understand s that this is a custom orthosis made of low temp thermoplas tic. Any modificati ons to the orthosis should be done by a Certified Hand Therapist. The patient may call for an appointmen t with me in this office. Or if the patient is receiving hand therapy , the provider at that clinic may adjust the orthosis as needed. The orthosis fabricated today is the appropriat e style for the diagnosis and informatio n provided. A rigid style orthosis is needed to protect the injury / surgery site and maintain alignment of the involved structures . Health Concerns Section Related Observation LastModified by Organization Detai ls LastModified Time None Recorded Concern Status LastModified by Organization Details LastModified Time None Recorded Advance Directives Directive None Recorded Payers Insurance Date Sequence Insurance Name Policy Number Policy Mondragon Covered Member ID Mondragon Member ID Guarantor Name 10/13/2024 1 [facility] [id number] Ashwini Roman [id number] Ashwini Abel Notes Date Note Type Note Provider Name and Address Organization Details Recorded Time 09/15/2024 text/html I am seeing the patient today under the supervision of dr Melo who was available but who did not see the patient. DX: Right wrist sprain HPI: 19-year-old female accompanied by her mother here for orthopedic consultation. She complained ulnar-sided right wrist pain. She reports approximately 1 week ago a cousin of hers twisted her wrist and she heard a pop. She was evaluated at a medical urgent care. X-rays were negative. She is an ulnar gutter splint. Continues to complain of ulnar-sided wrist pain. Tylenol ineffective. Past family, medical, social history and review of systems has been reviewed, updated and is located in the patient s chart. Examination: Alert and oriented 3. No acute distress. Nonantalgic gait. Examination right wrist reveals mild swelling over the ECU tendon sheath. She is tender over the ECU tendon. Subtle positive Synergy test. Mild tenderness over the ulnocarpal interval. No DRUJ instability. Negative TFC grind test. Full range of motion elbow forearm wrist and digits. 1+ cap refill. Left hand reveals no soft tissue swelling, erythema or ecchymosis. Digital range of motion is full. Neurovascular intact. X-rays ordered, obtained and reviewed at [facility] 4 views right wrist PA lateral oblique and patient scheduling coordinator view no fracture or dislocation findings and the situation discussed. Treatment options were discussed.patient was placed in a short arm cast. She will return in 2 weeks for cast removal and 3 views of the right wrist. She was advised take ibuprofen 600 mg 3 times daily x 3 days then as needed. She will take this with food monitor for GI symptoms. Impression/Plan: Libby Ramos PA-C [address] [facility] [address], [place], [address], [place] - [facility] 09/15/2024 14:51:25 09/17/2024 text/html 19-year-old female She complained ulnar-sided right wrist pain. She reports approximately 1 week ago a cousin of hers twisted her wrist and she heard a pop. She was evaluated at a medical urgent care. X-rays were negative. She is an ulnar gutter splint. Continues to complain of ulnar-sided wrist pain. Cast applied on 09/15/2024 removed today in order for a custom thermoplastic wrist immobilization orthosis is received. Vickie Malagon OTR/Dawn,T [address] [facility] [address], [place], [address], [facility] [place] [facility] 09/17/2024 14:26:31 OBGyn Episode No OBEpisode recorded.
[2025-01-23 17:13] VITALS: PULSE 97
== END 2025-01-23 16:18 | disposition home or self-care (01) ==
LOC: HO.HMCSH 15:17
PROVIDERS: PCP Pediatrics; Visit Provider Physician Assistant Medical
DX: F40.10 Social phobia, unspecified (principal); R42 Dizziness and giddiness; F94.0 Selective mutism; Z00.00 Encounter for general adult medical examination without abnormal findings; Z23 Encounter for immunization

== ENCOUNTER → 2025-01-23 15:17 | Outpatient (BNVA) | payer OTHER, SELFPAY | PROVIDERS: PCP Pediatrics; Visit Provider Physician Assistant Medical | DX: Z00.00 Encounter for general adult medical examination without abnormal findings (principal); F41.9 Anxiety disorder, unspecified; E86.0 Dehydration; F40.10 Social phobia, unspecified; R42 Dizziness and giddiness; F94.0 Selective mutism; Z23 Encounter for immunization; Z28.89 Immunization not carried out for other reason | CPT/HCPCS: 90471; 96127 ==

== ENCOUNTER 2025-01-24 09:47 | Outpatient (REF) | payer OTHER, SELFPAY ==
--- OUTSIDE RECORDS SUMMARY | 2025-01-24 09:51 | XMS_ITS | Encounter Summary ---
Author Organization [facility] Address [address] [place] [address] Phone Care Team Providers Care Harbor Boat Pilot Name Role Phone Halle Goff MD Primary Care Provider [phone] Encounter Details Date Type Department Care Team (Late st Contact Info) Description 02/14/2011 Documentation [facility] [place] [facility] [address] [place] [address] Family Medicine, Physician [address] [place] [address] Social History Tobacco Use Types Packs/Day Years [...] on filedocumented in this encounter Care Teams Harbor Boat Pilot Relationship Specialty Start Date End Date Halle Goff MD [address] [place] [address] PCP - General Pediatrics 09/26/22 documented as of this encounter
--- OUTSIDE RECORDS SUMMARY | 2025-01-24 09:51 | XMS_ITS | Encounter Summary ---
Author Organization [facility] Address [address] [place] [address] Phone Care Team Providers Care Continuing Education Specialist Name Role Phone Halle Goff MD Primary Care Provider [phone] Reason for Visit * Reason Comments Med Refill Encounter Details Date Type Department Care Team ([facility] st Contact Info) Description 03/19/2020 Refill [facility] [address] [address] Tameka Kaplan MD [address] [place] [address] Anxiety Social History Tobacco Use Types Packs/Day [...] follow up. * Telephone Encounter - Theodora eLwis LPN - 03/19/2020 11:52 AM EST Refill request for fluoxetine. Last PE 09/12/19, last FU 02/05/20/JOHANNE documented in this encounter Plan of Treatment Not on file documented as of this encounter Visit Diagnoses Diagnosis Anxiety Anxiety state, unspecified documented in this encounter Care Teams Continuing Education Specialist Relationship Specialty Start Date End Date Halle Goff MD [address] [place] [address] PCP - General Pediatrics 09/26/22 documented as of this encounter
--- OUTSIDE RECORDS SUMMARY | 2025-01-24 09:51 | XMS_ITS | Encounter Summary ---
Author Organization [facility] Address [address] [place] [address] Phone Care Team Providers Care Home Health Nurse Name Role Phone Halle Goff MD Primary Care Provider [phone] Encounter Details Date Type Department Care Team (Late st Contact Info) Description 01/18/2011 Documentation [facility] Family Medicine [address] [place] [address] Family Medicine, Physician [address] [place] [address] Social History Tobacco Use Types Packs/Day Years [...] on filedocumented in this encounter Care Teams Home Health Nurse Relationship Specialty Start Date End Date Halle Goff MD [address] [place] [address] PCP - General Pediatrics 09/26/22 documented as of this encounter
--- OUTSIDE RECORDS SUMMARY | 2025-01-24 09:51 | XMS_ITS | Clinical Summary ---
Author Organization [facility] Address [address] [place] [address] Phone Care Team Providers Care Special Education Classroom Aide Name Role Phone Halle Goff MD Primary Care Provider [phone] Allergies Active Allergy Reactions Criticality Noted Date [...] EDT): anxiety so so working w/ the [facility] Adjustment counselor, attendance counselor as pt transitioned from [facility] during the pandemic Assessment & Plan (06/15/2021 [...] EST): Ashwini started school in person at [employer] after being at [employer] in the past few years Was [...] was in therapy with jeffrey in the [place] office and recently with Claribel Also had [...] 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 Occasionally [...] 2 pills last night. 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 Stressed import of taking med regularly. Assessment [...] Description 12/22/2024 4:00 PM EDT Office Visit [facility] - [address] [address] Halle Goff MD Vertigo (Primary Dx); Dizziness [...] Father Valeriy Roman Dental caries Father Valeriy [place] SAILAJA disease Father Valeriy [place] Hyperlipidemia Father [...] of Hyperlipidemia, No family history of *Sudden /MS under 55, No family history of *Thrombophilia [...] Additional history exists Procedures * Due to [facility] law, this organization might not be sharing sensitive test results. Procedure Name Priority Date/Time Associated Diagnosis Comments POCT URINALYSIS DIPSTICK Routine 12/22/2024 4:14 PM EDT Dizziness CHLAMYDIA AND GONORRHEA, AMPLIFIED Routine 09/03/2024 10:36 AM EDT Special screening examination for chlamydial disease from Last 3 Months or Most Recently Relevant to Health Maintenance Results * Due to [facility] law, this organization might not be sharing sensitive test results. * (ABNORMAL) POCT Urinalysis Dipstick (12/22/2024 4:14 PM EDT) Pathologist [facility] Leukocytes, Urine neg [facility] Nitrite, Urine neg Negative [facility] Urobilinogen, Urine 0.2 0.1 - 1 mg/dL [facility] Protein, Urine +-(A) Negative [facility] Comment:15 mg/dL pH, Urine 5.5 4.6 - 10 [facility] BLOOD neg Negative n [facility] Specific [place], Urine 1.030 1.0003 - 1.03 [facility] Ketones, Urine +-(A) Negative [facility] DENISE Comment:5 mg/dL Bilirubin, Urine, POC neg Negative n [facility] Glucose neg Negative [facility] Urine 12/22/2024 4:14 PM EDT 12/22/2024 4:14 PM EDT Narrative [facility] - 12/22/2024 4:14 PM EDT [id number] ([id number]), [place] office Gas Treater: 01 Testing Performed at us Halle Goff MD POINT OF CARE TEST ORDERABLES Final Result [facility] [address] [place] [address] * Chlamydia and Gonorrhoea, Amplified (09/03/2024 10:36 AM EDT) C trach CAROL ANN Negative Negative [facility] N gonorrhoeae CAROL ANN Negative Negative [facility] Urine (Urine) 09/03/2024 10: 36 AM EDT 09/03/2024 Comment:URINE Narrative [facility] - 09/04/2024 4:05 PM EDT Performed at: 01 - [facility] [address], [place], [place] [id number] Adjunct Instructor: Jabari Nino MD, Phone: [phone] us Tammy Gonzalez NP LAB MICROBIOLOGY - GENERAL NATASHA SPANGLER Final Result Performing Organization Address City/[facility]/ZIP Co de Phone Number [facility] [address] [place] [address] from Last 3 Months or Most Recently Relevant to Health Maintenance Insurance [facility] Care Teams Special Education Classroom Aide Relationship Specialty Start Date End Date Halle Goff MD [address] [place] [address] PCP - General Pediatrics 09/26/22
--- OUTSIDE RECORDS SUMMARY | 2025-01-24 09:51 | XMS_ITS | Encounter Summary ---
Author Organization [facility] Address [address] [place] [address] Phone Care Team Providers Care Sintering Press Operator Name Role Phone Halle Goff MD Primary Care Provider [phone] Encounter Details Date Type Department Care Team (Late st Contact Info) Description 11/16/2016 Conversion Encounter [facility] [place] [address] [place] [address] Social History Tobacco Use Types Packs/Day Years [...] on filedocumented in this encounter Care Teams Sintering Press Operator Relationship Specialty Start Date End Date Halle Goff MD [address] [place] [address] PCP - General Pediatrics 09/26/22 documented as of this encounter
--- OUTSIDE RECORDS SUMMARY | 2025-01-24 09:51 | XMS_ITS | Patient Health Record ---
Author Organization [facility] Address [address] [place] [address] Care Team Providers Care Legal Biller Name Role Phone Tameka Kaplan MD Primary Care Provider Nirmal Ignacio Unavailable [phone] Reason For Referral No Information Medications Medication SIG (Take, Route, Frequency, Duration) Notes Start Date End Date Status Dxcrdnkx-Znmnoxmwi-CB 3.5-08955-5 3-4 DROPS IN AFFECTED EAR 4 TIMES [...] W/U Status Risk Notes Problem Tibialis tendinitis (01009150) Posterior tibial tendinitis, right leg (M76.821) Active confirmed Problem Tibialis tendinitis (84351525) Posterior tibial tendinitis, left leg (M76.822) Active confirmed Plan Of Treatment No Information Insurance Providers Payer Name Payer Address Payer Phone Subscriber Number Group Number Insured Name Patient Relationship to Insured Coverage Start Date Coverage End Date [facility] [address] [place] [address] [id number] Valeriy Dean Child - Insured has Financial Responsibility Medical (General) History Medical History History ICD Code Anxiety disorder Surgical History Surgery Date(Month/Year) tubes 2006, 2009 tube removal 2011
[2025-01-24 14:03] LABS: Appearance Urine Clear; Glucose Urine UA Negative (Negative); PH 7.5 (5.0-9.0); Specific Gravity - Urine 1.015 (1.005-1.025); UMIC TRIGGER UACC YES
[2025-01-24 14:07] LABS: Total Hemoglobin (HGBA1C) 3439.3121 umol/L
[2025-01-24 14:33] LABS: Cholesterol 191 mg/dL (<200); HDL Cholesterol 67 mg/dL (>40); Magnesium 2.2 mg/dL (1.6-2.6); Triglycerides 57 mg/dL (<150)
[2025-01-24 15:01] LABS: Folate 12.5 ng/mL (> or = 4.0); Vitamin B12 303 pg/mL (200-900)
[2025-02-19 12:08] LABS: Testosterone, Free 4.1 pg/mL (0.1-6.4)
== END 2025-01-24 09:48 | disposition home or self-care (01) ==
LOC: HO.HMGCLDS 09:47
PROVIDERS: PCP Physician Assistant Medical; Visit Provider Physician Assistant Medical
DX: Z00.00 Encounter for general adult medical examination without abnormal findings (principal); Z13.29 Encounter for screening for other suspected endocrine disorder; Z13.1 Encounter for screening for diabetes mellitus; Z13.6 Encounter for screening for cardiovascular disorders
CPT/HCPCS: 36415; 80061; 81001; 81003; 82306; 82607; 82627; 82642; 82746; 83002; 83036; 83735; 84144; 84146; 84402; 84403; 84443; 85652; 86140

== ENCOUNTER 2025-01-28 07:53 | Outpatient (AMB) | payer OTHER, SELFPAY ==
--- OUTSIDE RECORDS SUMMARY | 2025-01-28 07:55 | XMS_ITS | Encounter Summary ---
Author Organization [facility] Address [address] [place] [address] Phone Care Team Providers Care Billet Worker Name Role Phone Halle Goff MD Primary Care Provider [phone] Reason for Visit * Reason Comments Med Refill Encounter Details Date Type Department Care Team ([facility] st Contact Info) Description 03/19/2020 Refill [facility] [address] [address] Tameka Kaplan MD [address] [place] [address] Anxiety Social History Tobacco Use Types Packs/Day [...] unspecified documented in this encounter Care Teams Billet Worker Relationship Specialty Start Date End Date Halle Goff MD [address] [place] [address] PCP - General Pediatrics 09/26/22 documented as of this encounter
--- OUTSIDE RECORDS SUMMARY | 2025-01-28 07:55 | XMS_ITS | Encounter Summary ---
Author Organization [facility] Address [address] [place] [address] Phone Care Team Providers Care Obstetrical Nurse Name Role Phone Halel Goff MD Primary Care Provider [phone] Encounter Details Date Type Department Care Team (Late st Contact Info) Description 01/18/2011 Documentation [facility] [place] [address] [place] [address] Family Medicine, Physician [address] [place] [address] Social History Tobacco Use Types Packs/Day Years [...] on filedocumented in this encounter Care Teams Obstetrical Nurse Relationship Specialty Start Date End Date Halle Goff MD [address] [place] [address] PCP - General Pediatrics 09/26/22 documented as of this encounter
--- OUTSIDE RECORDS SUMMARY | 2025-01-28 07:55 | XMS_ITS | Encounter Summary ---
Author Organization [facility] Address [address] [place] [address] Phone Care Team Providers Care Stitchdowns Toe Former Name Role Phone Halle Goff MD Primary Care Provider [phone] Encounter Details Date Type Department Care Team (Late st Contact Info) Description 02/14/2011 Documentation [facility] Family Medicine [address] [place] [address] Family Medicine, Physician [address] [place] [address] Social History Tobacco Use Types Packs/Day Years [...] on filedocumented in this encounter Care Teams Stitchdowns Toe Former Relationship Specialty Start Date End Date Halle Goff MD [address] [place] [address] PCP - General Pediatrics 09/26/22 documented as of this encounter
--- OUTSIDE RECORDS SUMMARY | 2025-01-28 07:55 | XMS_ITS | Data Portability ---
Author Organization [place] - [facility], Allergy Address [address] [place] [address] Care Team Providers Care Glost Kiln Placer Name Role Phone JACLYN SKINNER Primary Care [...] other causes of dizziness. Referral to a medical transcription radiology may also be beneficial to assess blood [...] n 2024 025 CHANDANA Puckett MD, [address] [facility], [place], [address], 12:38:59 Procedures None recorded. Surgeries None recorded. Imaging None recorded. Medication Orders None recorded. Patient TargetsNo targets recorded. Patient Instructions Encounter Date Encounter Id Patient Instructions Last Modified By Organization Details Last Modified Time 01/21/2025 [id number] - Keep a diary of symptoms to identify potential triggers. - Follow a low-salt diet and maintain adequate hydration. - Avoid caffeine and stimulants. - Review information packets on atypical migraines and Migranol. - Follow up with a neurologist for further evaluation. - Follow up with a medical transcription radiology to assess blood pressure-related issues. - Coordinate [...] audio gram No observ ation record ed. [email or web address] Not Available 15:57:46 01/16/20 25 audio gram No observ ation record ed. BARCODE Not Available 2024 16:38:50 Result Notes None recorded. Problems Name Problem SNOMED Code Status Onset Date Resolution Date Notes Provider Name and Address Organization Details Recorded Time Otalgia 39360079 Active 2014 Otalgi a; Note: Date Diagno sed: 015 10:01 AM (388.7 0) Not Available [facility] 02:57:30 Dizziness 823886935 Active 2024 EVELYNE MCCLAIN [place], [facility] [address], [place], [address] , [facility] - [facility] 15:47:04 Dizziness and giddiness 285954518 Active 2024 Jaime Moyer, [address],[address], [place], [address] , [facility] - [facility] [place] 16:46:34 Orthostatic hypotension 80148302 Active 2024 Jaime Moyer, [address] [place] [address], [place], [address] , [facility] - [facility] 16:46:38 Generalized anxiety disorder 04857227 Active 2024 Jaime Moyer, [address] [facility], [facility] [place], [address] , [facility] - [facility] 16:46:41 Problem Notes None recorded. Procedures Surgical History Date Name Laterality Status Provider Name and Address Organization Details Recorded Time 01/15/2025 Air & Speech Audio with Tymps - 94672, 27678 & 58331 completed EVELYNE MCCLAIN [place], [facility] [address] [facility],[address] [facility], [place], [address], [facility] - [facility] 01/15/2025 15:47:16 Imaging Results None recorded. Procedure [...] 01/21/2025 170.18 cm 53 % 21.9 kg/m2 10638.93 g CAROLANN HINSE [place] - [facility] 01/21/2025 15:58:33 Social History None recorded. Functional Status None recorded. Mental Status None recorded. Family History Nothing Reported. Medical History No medical history recorded. Gynecological HistoryNo gynecological history recorded. Obstetrics History GPAL:G 0 P 0 0 0 0 Past Encounters Encounter ID Performer Location Encounter Start Date Encounter Closed Date Diagnosis/Indication Diagnosis SNOMED-CT Code Diagnosis ICD10 Code Diagnosis IMO Codes Diagnosis Note [id number] Jaime Moyer DO [facility] [address] [address] 01/15/2025 15:05:05 01/15/2025 15:56:20 Dizziness 278539062 R42 50025 Audiologic al evaluation results: Right ear: Normal hearing with excellent word recognitio n. Left ear: Normal hearing with excellent word recognitio n. Tympanomet ry: Right Ear:Type As (0.2) Left Ear:Type As (0.2) [id number] Jaime Moyer DO [facility] [address] [address] 01/21/2025 15:19:20 01/21/2025 16:33:04 Dizziness and giddiness 183309702 R42 36951 Audiologic al evaluation results: Right ear: Normal hearing with excellent word recognitio n. Left ear: Normal hearing with excellent word recognitio n. Tympanomet ry: Right Ear:Type As (0.2) Left Ear:Type As (0.2) Orthostati c hypotension 02244717 I95.1 3436 Audiologic al evaluation results: Right ear: Normal hearing with excellent word recognitio n. Left ear: Normal hearing with excellent word recognitio n. Tympanomet ry: Right Ear:Type As (0.2) Left Ear:Type As (0.2) Generalize d anxiety disorder 03670592 F41.1 017196 Health Concerns Section Related Observation LastModified by Organization Detai ls LastModified Time None Recorded Concern Status LastModified by Organization Details LastModified Time None Recorded Advance Directives Directive None Recorded Payers Insurance Date Sequence Insurance Name Policy Number Policy Mondragon Covered Member ID Mondragon Member ID Guarantor Name 01/26/2025 1 [facility] [id number] Ashwini Roman [id number] Erlinda Roman Notes Date Note Type Note [...] has not yet seen a neurologist or medical transcription radiology for further evaluation. Jaime Moyer, [address], [address], [facility] - [facility] 01/21/2025 16:47:50 OBGyn Episode No OBEpisode recorded.
--- OUTSIDE RECORDS SUMMARY | 2025-01-28 07:56 | XMS_ITS | Encounter Summary ---
Author Organization [facility] Address [address] [place] [address] Phone Care Team Providers Care Principal Network Engineer Name Role Phone Halle Goff MD Primary Care Provider [phone] Encounter Details Date Type Department Care Team (Late st Contact Info) Description 11/16/2016 Conversion Encounter [facility] [place] [address] [place] [address] Social History Tobacco Use Types Packs/Day Years [...] on filedocumented in this encounter Care Teams Principal Network Engineer Relationship Specialty Start Date End Date Halle Goff MD [address] [place] [address] PCP - General Pediatrics 09/26/22 documented as of this encounter
--- OUTSIDE RECORDS SUMMARY | 2025-01-28 07:56 | XMS_ITS | Patient Health Record ---
Author Organization [facility] Address [address] [facility] [place] [address] Care Team Providers Care Conveyor Weigher Operator Name Role Phone Tameka Kaplan MD Primary Care Provider Nirmal Ignacio Unavailable [phone] Reason For Referral No Information Medications Medication SIG (Take, Route, Frequency, Duration) Notes Start Date End Date Status Rbrgeeiq-Puwfrkfgq-VO 3.5-47815-8 3-4 DROPS IN AFFECTED EAR 4 TIMES [...] W/U Status Risk Notes Problem Tibialis tendinitis (36237421) Posterior tibial tendinitis, right leg (M76.821) Active confirmed Problem Tibialis tendinitis (87451097) Posterior tibial tendinitis, left leg (M76.822) Active confirmed Plan Of Treatment No Information Insurance Providers Payer Name Payer Address Payer Phone Subscriber Number Group Number Insured Name Patient Relationship to Insured Coverage Start Date Coverage End Date [facility] [address] [place] [address] [id number] Valeriy Dean Child - Insured has Financial Responsibility Medical (General) History Medical History History ICD Code Anxiety disorder Surgical History Surgery Date(Month/Year) tubes 2006, 2009 tube removal 2011
--- OUTSIDE RECORDS SUMMARY | 2025-01-28 07:56 | XMS_ITS | Data Portability ---
Author Organization [place] - [facility], ABHISHEK Magdi PT Address [address] [place] [address] Assessment No assessment recorded. Plan of Treatment Reminders Order Date Submit Date Provider Last Modified By Organization Details Last Modified Time Details Appointments None recorde d. Lab None recorde d. Referral None recorde d. Procedures None recorde d. Surgeries None recorde d. Imaging XR, wrist, 3 or more view - RM 2 4V [facility] [employer] REP 025 09/16/19 25 [place] [facility], [address], [address], [place], [address], 14:48:44 Medication Orders None recorde d. Patient TargetsNo targets recorded. Patient Instructions Encounter Date Encounter Id Patient Instructions Last Modified By Organization Details Last Modified Time 09/15/2024 [id number] application of cast, short arm cast* - rm 2 sac high on forearm [email or web address] Not available 09/17/2024 08:49:45 09/17/2024 [id number] [facility] Custom Hand Orthosis Information Sheet [address] [place] [address] Name: Ashwini Roman Right Diagnosis: Ulnar-sided wrist [...] SOURCES: including, but not limited to, the strategy specialist, dryer, stove, furnace, heater, car (on a hot summer day). PETS: they like to chew the plastic. SKIN: watch for redness, blisters or any skin irritations. CLEANING: use warm soapy water, wipes or lead caregiver to keep the plastic clean, cotton socks [...] plan for this custom orthosis Patient Signature: [email or web address] Not available 09/17/2024 14:26:24 Reason for Referral None Reported. Results Created Date Observation Date Name Description Value Unit Range Abnormal Flag Note LastModifiedBy Organization Detail LastModifiedTime 09/16/19 25 09/15/2024 XR, wrist , 3 or more view http:/ [email or web address] ?Encry pted=s hAaTro YD8dLq bEUv6g %2BXZw aYqtaq 0bqfl% 2Fg9IQ a4ajBk vP9nXo QUaueC m3YtLR FvZlgJ JJ8mAn HZtai3 8j2013 AC0Kla HmMUqK mKiQtr MwF INTERFACE [email or web address] Office [address] [facility] [address], [place], [address], 09/15/2024 14:48:44 09/16/19 25 09/15/2024 XR, wrist , 3 or more view [email or web address]:/ [email or web address] ?Encry pted=s hAaTro YD8dLq bEUv6g %2BXZw aYqtaq 0bqfl% 2Fg9IQ a4ajBk vP9nXo QUaueC m3YtLR FvZlgJ JJ8mAn HZtai3 6b2416 AC0Kla HmMUqK mKiQtr MwF INTERFACE [email or web address] Office [address], [place], [address], 09/15/2024 14:48:46 Result Notes Documentation Provider Name and Address Organization Details Recorded Time Xr, Wrist, 3 Or More View : [email or web address]? Encrypted=iwKnAayHU8dAauS Uv6g%8IIUfkRitcc4wogr%2Fg 9RRi5tcYutL1rAnAXxlgJn8Kt WHUwUxvTHA3sXcLKoif65i505 4LX1AtqNpBPrSsVfXrxXpR Not Available [facility] 09/15/2024 14:48: 45 Xr, Wrist, 3 Or More View : [email or web address] Encrypted=emUhFuePO1fNjmM Uv6g%9WHKbcTdyrf1yijs%2Fg 3RIz2woSqdV0yWkKHchbJz3Zp EHEnQsmQEK0pClRUmxq67m170 9RX2UmhKlSEzLwTgIqgQbY Not Available [facility] 09/15/2024 14:48: 46 Procedures Surgical History Date Name Laterality Status Provider Name and Address Organization Details Recorded Time 5 Splint_Short Arm Fiberglass_1 1+ completed Dinorah Arredondo [facility] 09/17/2024 14:59:54 5 Cast Removal completed Dinorahroland Arredondo [facility] 09/17/2024 14:55:22 Imaging Results None recorded. [...] ICD10 Code Diagnosis IMO Codes Diagnosis Note [id number] Libby GAIL Ramos [facility] - [place] [address] [place] [address] 09/15/2024 14:31:29 09/30/2024 15:05:41 Pain of right wrist 1431210929 27365 M25.531 119214 [id number] Libby Ramos PA-C [facility] - [place] [address] [place] [address] 09/17/2024 13:58:35 09/17/2024 15:00:51 Pain of right wrist 4287198011 31186 M25.531 [id number] Vickie Malagon, OTR/L,CHT [facility] - [place] [address] [place] [address] 09/17/2024 14:22:33 09/17/2024 15:22:59 Pain of right wrist 6140765667 10175 M25.531 [id number] Today to protect the injury site and [...] Mondragon Member ID Guarantor Name 10/13/2024 [facility] [id number] Ashwini Roman [id number] Ashwini Abel Notes Date Note Type Note [...] intact. X-rays ordered, obtained and reviewed at [facility] 4 views right wrist PA lateral oblique and small arms artillery repairer view no fracture or dislocation findings and [...] GI symptoms. Impression/Plan: Libby Ramos PA-C [address] [facility] [address], [place], [address], [place] - [place] [facility] 09/15/2024 14:51:25 09/17/2024 text/html [...] orthosis is received. Vickie Malagon OTR/Dawn,T [address] [facility] [address], [place], [address], [facility] - [place] [facility] 09/17/2024 14:26:31 OBGyn Episode No OBEpisode recorded.
--- OUTSIDE RECORDS SUMMARY | 2025-01-28 07:56 | XMS_ITS | Clinical Summary ---
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 Occasionally [...] 2 pills last night. And bleeding is interpreter. Stressed import of taking med regularly. Assessment [...] Description 12/22/2024 4:00 PM EDT Office Visit [facility] - [address] [address] Halle Goff MD Vertigo (Primary Dx); Dizziness [...] of Hyperlipidemia, No family history of *Sudden /NC under 55, No family history of *Thrombophilia [...] Additional history exists Procedures * Due to [facility] law, this organization might not be sharing sensitive test results. Procedure Name Priority Date/Time Associated Diagnosis Comments POCT URINALYSIS DIPSTICK Routine 12/22/2024 4:14 PM EDT Dizziness CHLAMYDIA AND GONORRHEA, AMPLIFIED Routine 09/03/2024 10:36 AM EDT Special screening examination for chlamydial disease from Last 3 Months or Most Recently Relevant to Health Maintenance Results * Due to [facility] law, this organization might not be sharing sensitive test results. * (ABNORMAL) POCT Urinalysis Dipstick (12/22/2024 4:14 PM EDT) Pathologist [facility] Leukocytes, Urine neg [facility] Nitrite, Urine neg Negative n [facility] Urobilinogen, Urine 0.2 0.1 - 1 mg/dL [facility] Protein, Urine +-(A) Negative [facility] Comment:15 mg/dL pH, Urine 5.5 4.6 - 10 [facility] BLOOD neg Negative n [facility] Specific [place], Urine 1.030 1.0003 - 1.03 [facility] Ketones, Urine +-(A) Negative [facility] DENISE Comment:5 mg/dL Bilirubin, Urine, POC neg Negative n [facility] Glucose neg Negative [facility] Urine 12/22/2024 4:14 PM EDT 12/22/2024 4:14 PM EDT Narrative [facility] - 12/22/2024 4:14 PM EDT [id number] ([id number]), [place] office Trolley Collector: 01 Testing Performed at us Halle Goff MD POINT OF CARE TEST ORDERABLES Final Result [facility] [address] [place] [address] * Chlamydia and Gonorrhoea, Amplified (09/03/2024 10:36 AM EDT) C trach CAROL ANN Negative Negative [facility] N gonorrhoeae CAROL ANN Negative Negative [facility] Urine (Urine) 09/03/2024 10: 36 AM EDT 09/03/2024 Comment:URINE Narrative [facility] - 09/04/2024 4:05 PM EDT Performed at: 01 - [facility] [address], [address], [place], [place] [address] Blueprint Trimmer: Jabari Nino MD, Phone: [phone] us Tammy Gonzalez NP LAB MICROBIOLOGY - GENERAL NATASHA SPANGLER Final Result Performing Organization Address City/[facility]/ZIP Co de Phone Number [facility] [address] [place] [address] from Last 3 Months or Most Recently Relevant to Health Maintenance Insurance [facility] COMM[facility]CIAL [facility] COMM[facility]CIAL Care Teams Factory Lay Out Engineer Relationship Specialty Start Date End Date Halle Goff MD [address] [place] [address] PCP - General Pediatrics 09/26/22
[2025-01-28 08:05] VITALS: BP 120/76; PULSE 91; TEMP 37.2; O2SAT 100; BMI 22.8
--- NOTE | 2025-01-28 08:05 | AM.OFFWIN_ITS ---
Intake Vital Signs 01/28/25 08:05 Height 5 ft 8 in Weight 150 lb BMI 22.8 BP 120/76 Blood Pressure Location Rt brachial Position Sitting Pulse 91 Pulse Source Pulse Oximeter Temp 98.9 F Temp Source Temporal Artery Scan Pulse Oximetry (%) 100 Oxygen Delivery Method Room Air Intake Visit Reasons: ep sinus infection Intake Note: Patient presents with c/o sinus congestion/pressure x3 days Patient Tobacco Use Status: Never used Tobacco Allergies No Known Allergies Allergy (Verified 01/28/25 08:07) Do you need a note to return to daycare/school/sports/work: Yes HPI HPI Comments History of Present Illness Details History of Present Illness - The patient is a 19-year-old female pr esenting with sinus congestion. - Symptoms began approximately on Sunday , with yellow nasal discharge and facial pain, including dental pain. - She has been having a headache and pre ssure in the ears. - Occasional ear pain reported, but no s ignificant sore throat. - Dizziness is a chronic issue, currentl y under investigation with ENT and neurology consultations pending. - Previous sinus infection noted in Sept ember of the previous year. - Medication adherence is challenging du e to difficulty swallowing pills; prefers liquid formulations. - She has no sick contacts. - She has tried taking OTC liquid decong estants. - She denies fever, chills, CP, SOB, abd pain, n/v/d. Physical Exam General: Cooperative, healthy appearing, comfortable, no acute distress and well developed Head: Normal to inspection Ears: Hearing grossly normal bilaterally. No tragus or mastoid tenderness noted. Auditory canals clear bilaterally. TM's normal, not bulging. No fluid noted. Nose: Normal external nose present. Moist mucosa. Turbinates normal bilaterally, not boggy. Face and sinus: Tenderness to palpation of the frontal and maxillary sinuses bilaterally. Neck: Normal visual inspection and Yes full ROM. No lymphadenopathy noted. Respiratory: Normal respiratory effort and able to speak in complete sentences. Clear to auscultation bilaterally Cardiovascular: Regular rate and rhythm. Normal S1 and S2 GI: Normal to inspection. Soft to palpation and nontender, nondistended. No guarding noted. Skin: No rashes or lesions noted [facility] Medical History (Updated 01/23/25 @ 17:16 by Muriel Alan PA-C) Preventative health care Selective mutism Dizziness Social anxiety disorder Family History Mother HTN (hypertension) Hypercholesteremia Father Stroke Hypercholesteremia Social History Housing: House Patient Tobacco Use Status: Never used Tobacco service: No Current occupational status: employed Cognitive needs: No Hearing needs: No Vision needs: No Review of Systems Const All systems reviewed & are unremarkable except as noted in HPI and below Physical Exam Vital Signs: Last Vital Signs Temp 98.9 F 01/28/25 08:05 Pulse 91 01/28/25 08:05 BP 120/76 01/28/25 08:05 Pulse Ox 100 01/28/25 08:05 Oxygen Delivery Method Room Air 01/28/25 08:05 BMI result Body Mass Index 22.8 Assessment & Plan Assessment & Plan (1) Sinus congestion: Code(s): R09.81 - Nasal congestion Plan Most likely viral illness but due to symptoms and previous infections will treat for a presumed sinusitis plan - tylenol or motrin as needed for pain or fever - Start Augmentin BID for 7 days - can continue with OTC decongestants - steam showers are recommended - follow up with PCP Medications: New amoxicillin-pot clavulanate 400-57 mg/5 mL 10 mL PO Q12H 140 mL 0RF 7 days Coding Level of Care Code Est Pt Level 3 (17779) Diagnoses Sinus congestion R09.81
== END 2025-01-28 09:50 | disposition home or self-care (01) ==
PROVIDERS: PCP Physician Assistant Medical; Visit Provider Physician Assistant Medical
DX: R09.81 Nasal congestion (principal)

== ENCOUNTER 2025-02-16 07:37 | Outpatient (AMB) | payer OTHER, SELFPAY ==
[2025-02-16 07:46] VITALS: BP 128/84; PULSE 115; TEMP 37; O2SAT 100; BMI 22.8
--- NOTE | 2025-02-16 07:46 | AM.OFFWIN_ITS ---
Intake Vital Signs 02/16/25 07:46 Height 5 ft 8 in Weight 150 lb BMI 22.8 BP 128/84 Blood Pressure Location Rt brachial Position Sitting Pulse 115 H Pulse Source Pulse Oximeter Temp 98.6 F Temp Source Oral Pulse Oximetry (%) 100 Oxygen Delivery Method Room Air Intake Visit Reasons: EP-sinus infection, headaches, ears block Intake Note: Patient presents c/o sinus infection, headache & blocked ears - was seen on 01/27 for the same thing & was prescribed abx which she completed but it returne d after 1 week. Patient Tobacco Use Status: Never used Tobacco Allergies No Known Allergies Allergy (Verified 02/16/25 07:48) Do you need a note to return to daycare/school/sports/work: No HPI HPI Comments History of Present Illness Details 19-year-old female presents to the walk- in clinic with complaints of sinus pressure and congestion. She has a history of allergic sinusitis and is currently not taking any antihistamines. She was seen on 01/27 for similar symptoms and was diagnosed with bacterial sinusitis, treated with Amoxicillin. She reports symptoms improved ?a little bit? but never fully resolved. She was evaluated by ENT for persistent light-headedness and has been referred to Neurology; appointment is pending. 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 Denies fever, chills, nausea, or vomiting. [facility] Medical History (Updated 02/16/25 @ 08:04 by Radha Gonzalez NP) Allergic rhinitis Preventative health care Selective mutism Dizziness Social anxiety disorder Family History Mother HTN (hypertension) Hypercholesteremia Father Stroke Hypercholesteremia Social History Housing: House Patient Tobacco Use Status: Never used Tobacco service: No Current occupational status: employed Cognitive needs: No Hearing needs: No Vision needs: No Review of Systems Const All systems reviewed & are unremarkable except as noted in HPI and below Physical Exam Vital Signs: Last Vital Signs Temp 98.6 F 02/16/25 07:46 Pulse 115 H 02/16/25 07:46 BP 128/84 02/16/25 07:46 Pulse Ox 100 02/16/25 07:46 Oxygen Delivery Method Room Air 02/16/25 07:46 BMI result Body Mass Index 22.8 Const General: no acute distress Nutritional Appearance: well nourished Orientation/consciousness: patient oriented x3 HEENT Head: Yes normocephalic Ears: external ears normal and TM abnormal bulging bilateral and with fluid behind the TM bilateral General nose exam: Abnormal mucous membranes and turbinates present boggy and erythematous Face and sinus: Yes sinus tenderness Mouth: moist mucous membranes Throat: Yes uvula midline Resp Effort & Inspection: normal respiratory effort Auscultation: clear to auscultation bilaterally, no crackles, no rales, no rhonchi and no wheezes Cardio Heart sounds: S1 normal heart sound present and S2 normal heart sound present Neuro General: patient oriented x3 Assessment & Plan Assessment & Plan (1) Allergic rhinitis: Code(s): J30.9 - Allergic rhinitis, unspecified Plan: Recurrent sinus congestion / Sinus pressure ? likely allergic component given baseline allergic sinusitis and no current antihistamine use. Could represent unresolved or recurrent rhinosinusitis, though symptoms currently mild and non- systemic. 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 possible recurrent viral URI overlay. Start daily antihistamine (cetirizine or loratadine) for suspected allergic component. Recommend intranasal corticosteroid (e.g., Flonase) 1?2 sprays each nostril daily. Nasal saline rinses BID for symptom relief. Encourage hydration, rest, humidifier use. No indication for antibiotics at this time based on current presentation and lack of systemic symptoms. Reviewed red flags: fever, worsening sinus pain, purulent discharge, facial swelling, severe headache ? return if these occur. Consider re-evaluation with ENT. Medications: New fluticasone furoate 27.5 mcg/actuation (Flonase Sensimist) 2 sprays intranasal BID 27.3 mL 0RF J30.9 - Allergic rhinitis, unspecified Coding Level of Care Code Est Pt Level 4 (63957) Diagnoses Allergic rhinitis J30.9 Time Spent (min) 20
--- OUTSIDE RECORDS SUMMARY | 2025-02-16 07:53 | XMS_ITS | Encounter Summary ---
Author Organization [facility] Address [address] [place] [address] Phone Care Team Providers Care Release Coordinator Name Role Phone Halle Goff MD Primary Care Provider [phone] Encounter Details Date Type Department Care Team (Late st Contact Info) Description 01/18/2011 Documentation [facility] [place] Family Medicine [address] [place] [address] Family Medicine, Physician [address] [place] [address] Social History Tobacco Use Types Packs/Day Years [...] on filedocumented in this encounter Care Teams Release Coordinator Relationship Specialty Start Date End Date Halle Goff MD [address] [place] [address] PCP - General Pediatrics 09/26/22 documented as of this encounter
--- OUTSIDE RECORDS SUMMARY | 2025-02-16 07:53 | XMS_ITS | Encounter Summary ---
Author Organization [facility] Address [address] [place] [address] Phone Care Team Providers Care Body Shop Manager Name Role Phone Halle Goff MD Primary Care Provider [phone] Reason for Visit * Reason Comments Med Refill Encounter Details Date Type Department Care Team ([facility] st Contact Info) Description 03/19/2020 Refill [facility] [address] [address] Tameka Kaplan MD [address] [place] [address] Anxiety Social History Tobacco Use Types Packs/Day [...] unspecified documented in this encounter Care Teams Body Shop Manager Relationship Specialty Start Date End Date Halle Goff MD [address] [place] [address] PCP - General Pediatrics 09/26/22 documented as of this encounter
--- OUTSIDE RECORDS SUMMARY | 2025-02-16 07:53 | XMS_ITS | Data Portability ---
Author Organization [place] - [facility], Allergy Address [address] [place] [address] Care Team Providers Care Bean Snapper Name Role Phone JACLYN SKINNER Primary Care Provider [phone] Assessment Encounter Date Assessment Date Assessment LastModified [...] other causes of dizziness. Referral to a soaker may also be beneficial to assess blood [...] versus orthostati c [facility]ensio n [facility]24 [facility], [address] [facility], [place], [address], 15:28:52 Procedures None recorded. Surgeries None recorded. Imaging None recorded. Medication Orders None recorded. Patient TargetsNo targets recorded. Patient Instructions Encounter Date Encounter Id Patient Instructions Last Modified By Organization Details Last Modified Time 01/21/2025 [id number] - Keep a diary of symptoms to identify potential triggers. - Follow a low-salt diet and maintain adequate hydration. - Avoid caffeine and stimulants. - Review information packets on atypical migraines and Migranol. - Follow up with a neurologist for further evaluation. - Follow up with a soaker to assess blood pressure-related issues. - Coordinate [...] audio gram No observ ation record ed. [email or web address] Not Available 15:57:46 01/16/20 25 audio gram No observ ation record ed. BARCODE Not Available 2024 16:38:50 Result Notes None recorded. Problems Name Problem SNOMED Code Status Onset Date Resolution Date Notes Provider Name and Address Organization Details Recorded Time Otalgia 14323075 Active 2014 Otalgi a; Note: Date Diagno sed: 015 10:01 AM (388.7 0) Not Available [facility] 02:57:30 Dizziness 102345126 Active 2024 EVELYNE MCCLAIN [place], [facility] [address], [place], [address] , [facility] - [facility] 15:47:04 Dizziness and giddiness 005325497 Active 2024 Jaime Moyer, [address] [place],[address], [place], [address] , [facility] - [facility] 16:46:34 Orthostatic hypotension 30716129 Active 2024 Jaime Moyer, [address] [facility] [address] [facility] [address] [place] [address], [place], [address] , [facility] - [facility] 16:46:38 Generalized anxiety disorder 17764659 Active 2024 Jaime Moyer, [address] [facility] [address], [facility] [place], [address] , [facility] - [facility] 16:46:41 Problem Notes None recorded. Procedures Surgical History Date Name Laterality Status Provider Name and Address Organization Details Recorded Time 01/15/2025 Air & Speech Audio with Tymps - 53341, 63094 & 76282 completed EVELYNE MCCLAIN MA, [facility] [address] [facility],[address] [facility] [place], [address], [facility] - [facility] 01/15/2025 15:47:16 Imaging Results None recorded. Procedure [...] 01/21/2025 170.18 cm 53 % 21.9 kg/m2 22498.93 g CAROLANN HINES [place] - [facility] 01/21/2025 15:58:33 Social History None recorded. Functional Status None recorded. Mental Status None recorded. Family History Nothing Reported. Medical History No medical history recorded. Gynecological HistoryNo gynecological history recorded. Obstetrics History GPAL:G 0 P 0 0 0 0 Past Encounters Encounter ID Performer Location Encounter Start Date Encounter Closed Date Diagnosis/Indication Diagnosis SNOMED-CT Code Diagnosis ICD10 Code Diagnosis IMO Codes Diagnosis Note [id number] Jaime Moyer DO [facility] of [address] [address] 01/15/2025 15:05:05 01/15/2025 15:56:20 Dizziness 633723339 R42 47875 Audiologic al evaluation results: Right ear: Normal hearing with excellent word recognitio n. Left ear: Normal hearing with excellent word recognitio n. Tympanomet ry: Right Ear:Type As (0.2) Left Ear:Type As (0.2) [id number] Jaime Moyer DO [facility] of [address] [address] 01/21/2025 15:19:20 01/21/2025 16:33:04 Dizziness and giddiness 146557018 R42 84983 Audiologic al evaluation results: Right ear: Normal hearing with excellent word recognitio n. Left ear: Normal hearing with excellent word recognitio n. Tympanomet ry: Right Ear:Type As (0.2) Left Ear:Type As (0.2) Orthostati c hypotension 16621525 I95.1 3436 Audiologic al evaluation results: Right ear: Normal hearing with excellent word recognitio n. Left ear: Normal hearing with excellent word recognitio n. Tympanomet ry: Right Ear:Type As (0.2) Left Ear:Type As (0.2) Generalize d anxiety disorder 23865103 F41.1 399487 Health Concerns Section Related Observation LastModified by Organization Detai ls LastModified Time None Recorded Concern Status LastModified by Organization Details LastModified Time None Recorded Advance Directives Directive None Recorded Payers Insurance Date Sequence Insurance Name Policy Number Policy Mondragon Covered Member ID Mondragon Member ID Guarantor Name 02/09/2025 1 [facility] [id number] Ashwini Roman [id number] Erlinda Roman Notes Date Note Type Note [...] has not yet seen a neurologist or soaker for further evaluation. Jaime Moyer, DO [address] [facility],[place] [address], [place], [address], [facility] 01/21/2025 16:47:50 OBGyn Episode No OBEpisode recorded.
--- OUTSIDE RECORDS SUMMARY | 2025-02-16 07:53 | XMS_ITS | Patient Health Record ---
Author Organization [facility] Address [address] [place] [address] Care Team Providers Care Research Assistant Name Role Phone Tameka Kaplan MD Primary Care Provider Nirmal Ignacio Unavailable [phone] Reason For Referral No Information Medications Medication SIG (Take, Route, Frequency, Duration) Notes Start Date End Date Status Lpubsaek-Ekvltrhns-KO 3.5-46827-8 3-4 DROPS IN AFFECTED EAR 4 TIMES [...] W/U Status Risk Notes Problem Tibialis tendinitis (55270395) Posterior tibial tendinitis, right leg (M76.821) Active confirmed Problem Tibialis tendinitis (00498840) Posterior tibial tendinitis, left leg (M76.822) Active confirmed Plan Of Treatment No Information Insurance Providers Payer Name Payer Address Payer Phone Subscriber Number Group Number Insured Name Patient Relationship to Insured Coverage Start Date Coverage End Date [facility] [address] [place] [address] [phone] [id number] Valeriy Dean Child - Insured has Financial Responsibility Medical (General) History Medical History History ICD Code Anxiety disorder Surgical History Surgery Date(Month/Year) tubes 2006, 2009 tube removal 2011
--- OUTSIDE RECORDS SUMMARY | 2025-02-16 07:53 | XMS_ITS | Data Portability ---
Author Organization [place] - [facility], [facility] [place] [facility] Address [address] [place] [address] Assessment No assessment recorded. Plan of Treatment Reminders Order Date Submit Date Provider Last Modified By Organization Details Last Modified Time Details Appointments None recorde d. Lab None recorde d. Referral None recorde d. Procedures None recorde d. Surgeries None recorde d. Imaging XR, wrist, 3 or more view - RM 2 4V WRIST WITH ELECTRICAL HIGH TENSION TESTER 025 09/16/19 25 [place], [address], [address], [place], [address], 14:48:44 Medication Orders None recorde d. Patient TargetsNo targets recorded. Patient Instructions Encounter Date Encounter Id Patient Instructions Last Modified By Organization Details Last Modified Time 09/15/2024 [id number] application of cast, short arm cast* - rm 2 sac high on forearm [email or web address] Not available 09/17/2024 08:49:45 09/17/2024 [id number] [facility] Custom Hand Orthosis Information Sheet [address] [place] [address] Name: Ashwini Roman Right Diagnosis: Ulnar-sided wrist [...] SOURCES: including, but not limited to, the ambulance officer, dryer, stove, furnace, heater, car (on a hot summer day). PETS: they like to chew the plastic. SKIN: watch for redness, blisters or any skin irritations. CLEANING: use warm soapy water, wipes or junior technical writer to keep the plastic clean, cotton socks [...] plan for this custom orthosis Patient Signature: [email or web address] Not available 09/17/2024 14:26:24 Reason for Referral None Reported. Results Created Date Observation Date Name Description Value Unit Range Abnormal Flag Note LastModifiedBy Organization Detail LastModifiedTime 09/16/19 25 09/15/2024 XR, wrist , 3 or more view http:/ [email or web address] ?Encry pted=s hAaTro YD8dLq bEUv6g %2BXZw aYqtaq 0bqfl% 2Fg9IQ a4ajBk vP9nXo QUaueC m3YtLR FvZlgJ JJ8mAn HZtai3 0s9429 AC0Kla HmMUqK mKiQtr MwF INTERFACE [facility] [address] [facility] [address], [place], [address], 09/15/2024 14:48:44 09/16/19 25 09/15/2024 XR, wrist , 3 or more view http:/ [email or web address] ?Encry pted=s hAaTro YD8dLq bEUv6g %2BXZw aYqtaq 0bqfl% 2Fg9IQ a4ajBk vP9nXo QUaueC m3YtLR FvZlgJ JJ8mAn HZtai3 8s3235 AC0Kla HmMUqK mKiQtr MwF INTERFACE [facility] [address], [place], [address], 09/15/2024 14:48:46 Result Notes Documentation Provider Name and Address Organization Details Recorded Time Xr, Wrist, 3 Or More View : [email or web address]? Encrypted=fiHbAznIW7mSlvC Uv6g%7MBAlxRuthn3xpqb%2Fg 1WWd1auXfjE7mHqOXxetVi7Gu HAZaGspEEL5zPcWPqyy48j466 4KO1QsxRgSZyMtSvUzrLqO Not Available [facility] 09/15/2024 14:48: 45 Xr, Wrist, 3 Or More View : [email or web address]? Encrypted=pgIuFhjKY8hJwhA Uv6g%0KNHjjVwbzd6ylwy%2Fg 1ZBu8olDhbJ4sRcFZxpzGc2Kj IQJeGrwGJM1uKwCIgct44k129 7SG4HkyXlMIlAiZfWroSxE Not Available [facility] 09/15/2024 14:48: 46 Procedures Surgical History Date Name Laterality Status Provider Name and Address Organization Details Recorded Time 5 Splint_Short Arm Fiberglass_1 1+ completed Dinorah Arredondo [facility] 09/17/2024 14:59:54 5 Cast Removal completed Dinorahroland Arredondo [facility] 09/17/2024 [...] ICD10 Code Diagnosis IMO Codes Diagnosis Note [id number] Libby GAIL Ramos [facility] [place] [address] [place] [address] 09/15/2024 14:31:29 09/30/2024 15:05:41 Pain of right wrist 1058221696 09577 M25.531 244582 [id number] Libby Ramos PA-C [facility] - [place] [address] [place] [address] 09/17/2024 13:58:35 09/17/2024 15:00:51 Pain of right wrist 2118517969 27584 M25.531 702296 [id number] Vickie Malagon, OTR/L,CHT [facility] - [place] [address] [place] [address] 09/17/2024 14:22:33 09/17/2024 15:22:59 Pain of right wrist 3820264744 78186 M25.531 193860 Today to protect the injury site and [...] Mondragon Member ID Guarantor Name 10/13/2024 1 [facility] [id number] Ashwini Roman [id number] Ashwini Abel Notes Date Note Type Note [...] intact. X-rays ordered, obtained and reviewed at [facility] 4 views right wrist PA lateral oblique and mail truck driver view no fracture or dislocation findings and [...] GI symptoms. Impression/Plan: Libby Ramos PA-C [address] [facility] [address], [place], [address], [place] - [facility] 09/15/2024 14:51:25 09/17/2024 text/html [...] orthosis is received. Vickie Malagon OTR/Dawn,T [address] [facility] [address], [place], [address], [facility] - [facility] 09/17/2024 14:26:31 OBGyn Episode No OBEpisode recorded.
--- OUTSIDE RECORDS SUMMARY | 2025-02-16 07:53 | XMS_ITS | Continuity of Care Document ---
Author Organization [place] - [facility], [facility] Address [address] [place] [address] Care Team Providers Care Surgical Forceps Fabricator Name Role Phone JACLYN SKINNER Primary Care Provider [phone] Assessment No assessment recorded. Plan of Treatment Reminders Order Date Submit Date Provider Last Modified By Organization Details Last Modified Time Details Appointments None record ed. Lab None record ed. Referral None record ed. Procedures None record ed. Surgeries None record ed. Imaging None record ed. Medication Orders None record ed. Patient TargetsNo targets recorded. Patient InstructionsNo instructions recorded. Reason for Referral None Reported. Results Created Date Observation Date Name Description Value Unit Range Abnormal Flag Note LastModifiedBy Organization Detail LastModifiedTime 01/16/20 25 audio gram No observ ation record ed. BARCODE Not Available 2024 15:57:21 01/16/20 25 audio gram No observ ation record ed. Not Available 15:57:46 01/16/20 25 audio gram No observ ation record ed. BARCODE Not Available 2024 16:38:50 Result Notes None recorded. Problems Name Problem SNOMED Code Status Onset Date Resolution Date Notes Provider Name and Address Organization Details Recorded Time Otalgia 68050097 Active 2014 Otalgi a; Note: Date Diagno sed: 015 10:01 AM (388.7 0) Not Available [facility] 4 02:57:30 Dizziness 173859604 Active 2024 EVELYNE MCCLAIN MA, CCC-A [address] [place] [address], [facility] [place], [address] , [place] - [facility] 15:47:04 Dizziness and giddiness 553530180 Active 2024 Jaime Moyer, [address] [facility],[place] [address], [place], [address] , [facility] - [facility] 16:46:34 Orthostatic hypotension 83730406 Active 2024 Jaime Moyer, [address] [facility] [address], [place], [address] , [facility] - [facility] 16:46:38 Generalized anxiety disorder 88759537 Active 2024 Jaime Moyer, [address] [facility],[place] [address], [place], [address] , [facility] - [facility] 16:46:41 Problem Notes None recorded. Procedures Surgical History Date Name Laterality Status Provider Name and Address Organization Details Recorded Time 01/15/2025 Air & Speech Audio with Tymps - 50419, 27075 & 63904 completed EVELYNE MCCLAIN MA, CCC-A [address] [facility],[place] [address], [place], [address], [facility] - [facility] 01/15/2025 15:47:16 Imaging Results None recorded. Procedure [...] ICD10 Code Diagnosis IMO Codes Diagnosis Note [id number] Jaime Moyer DO [facility] [address] [address] 01/15/2025 15:05:05 01/15/2025 15:56:20 Dizziness 498072767 R42 49993 Audiologic al evaluation results: Right ear: Normal hearing with excellent word recognitio n. Left ear: Normal hearing with excellent word recognitio n. Tympanomet ry: Right Ear:Type As (0.2) Left Ear:Type As (0.2) Health Concerns Section Related Observation LastModified by Organization Detai ls LastModified Time None Recorded Concern Status LastModified by Organization Details LastModified Time None Recorded Payers Encounter Date Sequence Insurance Name Policy Number Policy Mondragon Covered Member ID Mondragon Member ID Guarantor Name 01/15/[address] [place] [address] [id number] Ashwini Roman [id number] Erlinda Roman OBGyn Episode No OBEpisode recorded.
--- OUTSIDE RECORDS SUMMARY | 2025-02-16 07:53 | XMS_ITS | Encounter Summary ---
Author Organization [facility] Address [address] [place] [address] Phone Care Team Providers Care Home Support Worker Name Role Phone Halle Goff MD Primary Care Provider [phone] Encounter Details Date Type Department Care Team (Late st Contact Info) Description 02/14/2011 Documentation [facility] Family Medicine [address] [place] [address] Family Medicine, Physician [address] [place] [address] Social History Tobacco Use Types Packs/Day Years [...] filedocumented in this encounter Care Teams Home Support Worker Relationship Specialty Start Date End Date Halle Goff MD [address] [place] [address] PCP - General Pediatrics 09/26/22 documented as of this encounter
--- OUTSIDE RECORDS SUMMARY | 2025-02-16 07:54 | XMS_ITS | Continuity of Care Document ---
Author Organization [place] - [facility], [facility] Address [address] [place] [id number] Care Team Providers Care Dish Maker Name Role Phone JACLYN SKINNER Primary Care [...] other causes of dizziness. Referral to a airport operations specialist may also be beneficial to assess blood [...] versus orthostati c hypotensio n [address] [facility] Neurology Scheduling, [address] [facility] [address], [place], [address], 15:28:52 Procedures None recorded. Surgeries None recorded. Imaging None recorded. Medication Orders None recorded. Patient TargetsNo targets recorded. Patient Instructions Encounter Date Encounter Id Patient Instructions Last Modified By Organization Details Last Modified Time 01/21/2025 [id number] - Keep a diary of symptoms to identify potential triggers. - Follow a low-salt diet and maintain adequate hydration. - Avoid caffeine and stimulants. - Review information packets on atypical migraines and Migranol. - Follow up with a neurologist for further evaluation. - Follow up with a airport operations specialist to assess blood pressure-related issues. - Coordinate [...] audio gram No observ ation record ed. [email or web address] Not Available 15:57:46 01/16/20 25 audio gram No observ ation record ed. BARCODE Not Available 2024 16:38:50 Result Notes None recorded. Problems Name Problem SNOMED Code Status Onset Date Resolution Date Notes Provider Name and Address Organization Details Recorded Time [place]a [id number] Active 2014 Otalgi a; Note: Date Diagno sed: 015 10:01 AM (388.7 0) Not Available [facility] 02:57:30 Dizziness 747589111 Active 2024 EVELYNE MCCLAIN MA, CCC-A [address], [place], [address] , [facility] - [facility] [place] 15:47:04 Dizziness and giddiness 314389854 Active 2024 Jaime Moyer, DO [address], [place], [address] , [facility] - [facility] [place] 16:46:34 Orthostatic hypotension 27329297 Active 2024 Jaime Moyer, DO [address], [place], [address] , [facility] - [facility] [place] 16:46:38 Generalized anxiety disorder 83146659 Active 2024 Jaime Moyer, DO [address], [place], [address] , [facility] - [facility] [place] 16:46:41 Problem Notes None recorded. Procedures Surgical History Date Name Laterality Status Provider Name and Address Organization Details Recorded Time 01/15/2025 Air & Speech Audio with Tymps - 23582, 06027 & 95957 completed EVELYNE MCCLAIN MA, [facility] [address], [place], [place], [address], [facility] - [facility] [place] 01/15/2025 15:47:16 Imaging Results None recorded. Procedure [...] 01/21/2025 170.18 cm 53 % 21.9 kg/m2 43218.93 g CAROLANN HINES [facility] 01/21/2025 15:58:33 Social History None recorded. Functional Status None recorded. Mental Status None recorded. Family History Nothing Reported. Medical History No medical history recorded. Gynecological HistoryNo gynecological history recorded. Obstetrics History GPAL:G 0 P 0 0 0 0 Past Encounters Encounter ID Performer Location Encounter Start Date Encounter Closed Date Diagnosis/Indication Diagnosis SNOMED-CT Code Diagnosis ICD10 Code Diagnosis IMO Codes Diagnosis Note [id number] Jaime Moyer DO [facility] of [address] [address] 01/15/2025 15:05:05 01/15/2025 15:56:20 Dizziness [id number] R42 62653 Audiologic al evaluation results: Right ear: Normal hearing with excellent word recognitio n. Left ear: Normal hearing with excellent word recognitio n. Tympanomet ry: Right Ear:Type As (0.2) Left Ear:Type As (0.2) [id number] Jaime Moyer DO [facility] of [address] [address] 01/21/2025 15:19:20 01/21/2025 16:33:04 Dizziness and giddiness [id number] R42 [id number] Audiologic al evaluation results: Right ear: Normal hearing with excellent word recognitio n. Left ear: Normal hearing with excellent word recognitio n. Tympanomet ry: Right Ear:Type As (0.2) Left Ear:Type As (0.2) Orthostati c hypotension 52496109 I95.1 3436 Audiologic al evaluation results: Right ear: Normal hearing with excellent word recognitio n. Left ear: Normal hearing with excellent word recognitio n. Tympanomet ry: Right Ear:Type As (0.2) Left Ear:Type As (0.2) Generalize d anxiety disorder 69389043 F41.1 263118 Health Concerns Section Related Observation LastModified by Organization Detai ls LastModified Time None Recorded Concern Status LastModified by Organization Details LastModified Time None Recorded Payers Encounter Date Sequence Insurance Name Policy Number Policy Mondragon Covered Member ID Mondragon Member ID Guarantor Name 01/21/2025 1 [facility] [id number] Ashwini Roman [id number] Erlinda Roman Notes Date Note Type Note [...] has not yet seen a neurologist or airport operations specialist for further evaluation. Jaime Moyer, DO [address] [facility],[address] [address], [place], [address], [facility] 01/21/2025 16:47:50 OBGyn Episode No OBEpisode recorded.
--- OUTSIDE RECORDS SUMMARY | 2025-02-16 07:54 | XMS_ITS | Clinical Summary ---
Author Organization [facility] Address [address] [place] [address] Phone Care Team Providers Care Glue Machine Operator Name Role Phone Halle Goff MD Primary Care Provider [phone] Allergies Active Allergy Reactions Criticality Noted Date [...] EDT): anxiety so so working w/ the [facility] Adjustment counselor, attendance counselor as pt transitioned from [facility] during the pandemic Assessment & Plan [...] Ashwini started school in person at [employer] after being at [employer] in the past few years Was [...] was in therapy with jeffrey in the [place] office and recently with Claribel Also had [...] 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 Occasionally [...] 2 pills last night. 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 Stressed import of taking med regularly. Assessment [...] Description 12/22/2024 4:00 PM EDT Office Visit [facility] - [address] [address] Halle Goff MD Vertigo (Primary Dx); Dizziness [...] of Hyperlipidemia, No family history of *Sudden /[place] under 55, No family history of *Thrombophilia [...] Additional history exists Procedures * Due to [facility] law, this organization might not be sharing sensitive test results. Procedure Name Priority Date/Time Associated Diagnosis Comments POCT URINALYSIS DIPSTICK Routine 12/22/2024 4:14 PM EDT Dizziness CHLAMYDIA AND GONORRHEA, AMPLIFIED Routine 09/03/2024 10:36 AM EDT Special screening examination for chlamydial disease from Last 3 Months or Most Recently Relevant to Health Maintenance Results * Due to [facility] law, this organization might not be sharing sensitive test results. * (ABNORMAL) POCT Urinalysis Dipstick (12/22/2024 4:14 PM EDT) Pathologist [facility] Leukocytes, [facility] Nitrite, [facility] Urobilinogen, Urine 0.2 0.1 - 1 mg/dL [facility] Protein, Urine +-(A) [facility] Comment:15 mg/dL pH, Urine 5.5 4.6 - 10 [facility] BLOOD neg [facility] Specific [place], Urine 1.030 1.0003 - 1.03 [facility] Ketones, Urine +-(A) Negative [facility] DENISE Comment:5 mg/dL Bilirubin, Urine, POC neg [facility] Glucose neg [facility] Urine 12/22/2024 4:14 PM EDT 12/22/2024 4:14 PM EDT Narrative [facility] - 12/22/2024 4:14 PM EDT [id number] ([id number]), [place] office Yard [employer]ockey: 01 Testing Performed at us Halle Goff MD POINT OF CARE TEST ORDERABLES Final Result [facility] [address] [place] [address] * Chlamydia and Gonorrhoea, Amplified (09/03/2024 10:36 AM EDT) C trach CAROL ANN Negative Negative [facility] N gonorrhoeae CAROL ANN Negative Negative [facility] Urine (Urine) 09/03/2024 10: 36 AM EDT 09/03/2024 Comment:URINE Narrative [facility] - 09/04/2024 4:05 PM EDT Performed at: 01 - [facility] [address], [address], [place], [place] [id number] [employer] Engineer: Jabari Nino MD, Phone: [phone] us Tammy Gonzalez NP LAB MICROBIOLOGY - GENERAL NATASHA SPANGLER Final Result Performing Organization Address City/[facility]/ZIP Co de Phone Number [facility] [address] [place] [address] from Last 3 Months or Most Recently Relevant to Health Maintenance Insurance [facility] COMMERCIAL [facility] COMMERCIAL Care Teams Glue Machine Operator Relationship Specialty Start Date End Date Halle Goff MD [address] [place] [address] PCP - General Pediatrics 09/26/22
--- OUTSIDE RECORDS SUMMARY | 2025-02-16 07:54 | XMS_ITS | Encounter Summary ---
Author Organization [facility] Address [address] [place] [address] Phone Care Team Providers Care Dock Attendant Name Role Phone Halle Goff MD Primary Care Provider Encounter Details Date Type Department Care Team (Late st Contact Info) Description 11/16/2016 Conversion Encounter [facility] [place] [address] [place] [address] Social History Tobacco Use Types Packs/Day Years [...] on filedocumented in this encounter Care Teams Dock Attendant Relationship Specialty Start Date End Date Halle Goff MD [address] [place] [address] PCP - General Pediatrics 09/26/22 documented as of this encounter
== END 2025-02-16 08:24 | disposition home or self-care (01) ==
PROVIDERS: PCP Physician Assistant Medical; Visit Provider Nurse Practitioner Family
DX: J30.9 Allergic rhinitis, unspecified (principal)